=== PATIENT | female | born 1980 | race Two or more races ===

== ENCOUNTER 2020-02-12 22:41 | Emergency (ER) | payer BC, OTHER ==
[2020-02-12 22:46] VITALS: BP 151/98; PULSE 59; RESP 18; TEMP 98.8
--- NOTE | 2020-02-12 23:22 | ED ---
General Adult HPI - General Chief complaint: Recheck/Abnormal Lab/Rx Stated complaint: Female Time Seen by Provider: 02/12/20 22:53 Source: patient Mode of arrival: ambulatory Limitations: no limitations - History of Present Illness Initial comments: 39-year-old female presents to emergency Department with complaints of vaginal foreign body. Patient states inserted a tampon 7 days ago and has been unable to retrieve it. Patient states she noticed a foul-smelling vaginal odor today and became concerned. Denies vaginal discharge. States she has had intercourse with her with the retained tampon. Patient denies any recent rash, fever, chills, cough, shortness of breath, chest pain, abdominal pain, nausea, vomiting, diarrhea, constipation, back pain, numbness, tingling, dizziness, weakness, hematuria, dysuria, urinary urgency, urinary frequency, headache, visual changes, or any other complaints. - Related Data Allergies Allergy/AdvReac Type Severity Reaction Status Date / Time No Known Allergies Allergy Verified 02/12/20 22:47 Review of Systems ROS Statement: Those systems with pertinent positive or pertinent negative responses have been documented in the HPI. ROS Other: All systems not noted in ROS Statement are negative. Past Medical History Past Medical History: No Reported History Past Surgical History: No Surgical Hx Reported Smoking Status: Never smoker Past Alcohol Use History: None Reported Past Drug Use History: None Reported General Exam Limitations: no limitations (Well-developed, well-nourished female in no acute distress. Initial temperature 98.8F, pulse 59, respirations 18, blood pressure 151/98, pulse ox 99% on room air.) General appearance: alert, in no apparent distress Respiratory exam: Present: normal lung sounds bilaterally. Absent: respiratory distress, wheezes, rales, rhonchi, stridor Cardiovascular Exam: Present: regular rate, normal rhythm, normal heart sounds. Absent: systolic murmur, diastolic murmur, rubs, gallop, clicks GI/Abdominal exam: Present: soft, normal bowel sounds. Absent: distended, tenderness External exam: Present: normal external exam Speculum exam: Present: foreign body (Saturated tampon was removed using ring forceps). Absent: erythema, vaginal discharge Neurological exam: Present: alert, oriented X3, CN II-XII intact Psychiatric exam: Present: normal affect, normal mood Course Vital Signs 02/12/20 22:43 Temperature 98.8 F Pulse Rate 59 L Respiratory 18 Rate Blood Pressure 151/98 O2 Sat by Pulse 99 Oximetry Medical Decision Making - Medical Decision Making 39-year-old female presents to the emergency Department with complaints of vaginal foreign body. Patient states she forgot about a tampon she placed approximately 7 days ago. Reports becoming concerned when she noticed a foul- smelling vaginal odor this morning. Patient states she attempted to remove the retained tampon at home prior to arrival but was unsuccessful. Saturated tampon was easily removed with ring forceps during speculum exam. Instructed to follow-up with primary care provider for recheck as needed. Return parameters were discussed in detail. Patient verbalizes understanding and agrees with this plan. Disposition Clinical Impression: Vaginal foreign body Disposition: HOME SELF-CARE Condition: Good Instructions (If sedation given, give patient instructions): Vaginal Foreign Body (ED) Additional Instructions: Follow-up with your primary care provider for recheck in the next 1-2 days. Return to the emergency department with any new, worsening, or concerning symptoms. Is patient prescribed a controlled substance at d/c from ED?: No Referrals: None,Stated [Primary Care Provider] - 1-2 days Time of Disposition: 23:21
== END 2020-02-12 23:46 | disposition home or self-care (01) ==
LOC: EC 22:41
DX: T19.2XXA Foreign body in vulva and vagina, initial encounter (principal); X58.XXXA Exposure to other specified factors, initial encounter
CPT/HCPCS: 99283

== ENCOUNTER 2020-03-10 01:46 | Observation (INO) | payer OTHER ==
--- NOTE | 2020-03-10 02:34 | ED ---
General Adult HPI - General Chief complaint: Extremity Problem,Nontraumatic Stated complaint: High blood pressure, swollen feet Time Seen by Provider: 03/10/20 02:14 Source: patient Mode of arrival: wheelchair Limitations: no limitations - History of Present Illness Initial comments: This patient is a 39-year-old woman whose only known medical history of some -induced hypertension, presenting with a constellation of symptoms. We'll brought her to the emergency department mainly in his lower extremity swelling. She states that on probably March 05 she noticed that her bilateral feet and lower legs were swelling such it was becoming difficult to put her shoes on. She was seen in an urgent care 2 days ago and was given diuretics to use but states that since that time the swelling has only worsened. Prior to this she notes that her exercise tolerance that he changed. The patient states she is a regular bicyclist, but noticed that starting around January her exercise tolerance seem to be reduced. The patient denies chest pain. No dyspnea, diaphoresis, orthopnea, change in urination, bloody or tarry stools. Patient denies unilateral leg pain. She states there is a little bit of pain bilaterally associated with the swelling. -: days(s) Location: left, right, lower extremity Quality: dull Consistency: constant Improves with: none Worsens with: none - Related Data Home Medications Medication Instructions Recorded Confirmed Furosemide [Lasix] 40 mg PO DAILY 03/10/20 03/10/20 Allergies Allergy/AdvReac Type Severity Reaction Status Date / Time No Known Allergies Allergy Verified 03/10/20 07:40 Review of Systems ROS Statement: Those systems with pertinent positive or pertinent negative responses have been documented in the HPI. ROS Other: All systems not noted in ROS Statement are negative. Constitutional: Denies: fever, chills Respiratory: Denies: cough, dyspnea, hemoptysis Cardiovascular: Reports: dyspnea on exertion, edema. Denies: chest pain, palpitations, orthopnea, syncope Gastrointestinal: Denies: abdominal pain, nausea, vomiting, diarrhea, constipation Genitourinary: Denies: dysuria, frequency, hematuria Musculoskeletal: Reports: back pain (Chronic) Skin: Denies: rash Neurological: Denies: headache, weakness, numbness Hematological/Lymphatic: Denies: easy bleeding Past Medical History Past Medical History: No Reported History History of Any Multi-Drug Resistant Organisms: None Reported Past Surgical History: No Surgical Hx Reported Additional Past Surgical History / Comment(s): 5 vaginal deliveries Past Psychological History: No Psychological Hx Reported Smoking Status: Current every day smoker, Never smoker Past Alcohol Use History: None Reported Past Drug Use History: None Reported - Past Family History Mother Family Medical History: Cancer Additional Family Medical History / Comment(s): Breast CA. family Family Medical History: No Reported History General Exam Limitations: no limitations General appearance: alert, in no apparent distress Head exam: Present: atraumatic, normocephalic Eye exam: Present: normal appearance. Absent: scleral icterus, conjunctival injection ENT exam: Present: normal oropharynx Neck exam: Present: normal inspection Respiratory exam: Present: normal lung sounds bilaterally. Absent: respiratory distress, wheezes, rales, rhonchi, stridor, accessory muscle use, decreased breath sounds, prolonged expiratory Cardiovascular Exam: Present: regular rate, normal rhythm, normal heart sounds. Absent: systolic murmur, diastolic murmur, rubs, gallop GI/Abdominal exam: Present: soft. Absent: distended, tenderness, guarding, rebound, rigid, mass Extremities exam: Present: normal inspection, normal capillary refill, pedal edema. Absent: calf tenderness Neurological exam: Present: alert. Absent: motor sensory deficit Skin exam: Present: warm, dry, intact, normal color. Absent: rash Course Vital Signs 03/10/20 03/10/20 01:58 03:57 Temperature 97.9 F Pulse Rate 106 H 92 Respiratory 18 19 Rate Blood Pressure 142/95 130/97 O2 Sat by Pulse 100 98 Oximetry EKG Findings - EKG Comments: EKG Findings:: Possible old anterior infarct, possible old inferior infarct. - EKG Results: EKG: sinus rhythm (Rate 95 bpm) - Blocks, [place], Hypertrophy, ST Abn: AV and intraventricular conduction: right bundle branch block (fixed/intermittent, complete/incomplete) (Incomplete) Chamber hypertrophy or enlargement: right ventricular hypertrophy or enlargement (With repolarization abnormality) Repolarization changes or abnormalities: nonspecific abnormality, ST segment, and/or T wave Medical Decision Making - Medical Decision Making This patient is a 39-year-old woman presenting with bilateral lower extremity edema. On the exam she does manifest some evidence of right-sided heart failure and her ECG though not diagnostic is abnormal. Patient will be admitted for echocardiogram and cardiology consultation. - Lab Data Result diagrams: 03/10/20 02:22 03/10/20 02:22 Lab Results 03/10/20 03/10/20 03/10/20 Range/Units 02:22 02:22 02:22 WBC 9.9 (3.8-10.6) k/uL RBC 5.62 H (3.80-5.40) m/uL Hgb 15.8 (11.4-16.0) gm/dL Hct 50.0 H (34.0-46.0) % MCV 89.1 (80.0-100.0) fL MCH 28.1 (25.0-35.0) pg MCHC 31.6 (31.0-37.0) g/dL RDW 13.6 (11.5-15.5) % Plt Count 297 (150-450) k/uL MPV 8.7 Neutrophils % 58 % Lymphocytes % 32 % Monocytes % 4 % Eosinophils % 3 % Basophils % 1 % Neutrophils # 5.8 (1.3-7.7) k/uL Lymphocytes # 3.2 (1.0-4.8) k/uL Monocytes # 0.4 (0-1.0) k/uL Eosinophils # 0.3 (0-0.7) k/uL Basophils # 0.1 (0-0.2) k/uL D-Dimer 0.53 (<0.60) mg/L FEU Sodium (137-145) mmol/L Potassium (3.5-5.1) mmol/L Chloride (98-107) mmol/L Carbon Dioxide (22-30) mmol/L Anion Gap mmol/L BUN (7-17) mg/dL Creatinine (0.52-1.04) mg/dL Est GFR (CKD-EPI)AfAm (>60 ml/min/1.73 sqM) Est GFR (CKD-EPI)NonAf (>60 ml/min/1.73 sqM) Glucose (74-99) mg/dL Calcium (8.4-10.2) mg/dL Total Bilirubin (0.2-1.3) mg/dL AST (14-36) U/L ALT (4-34) U/L Alkaline Phosphatase (38-126) U/L Troponin I (0.000-0.034) ng/mL NT-Pro-B Natriuret Pep pg/mL Total Protein (6.3-8.2) g/dL Albumin (3.5-5.0) g/dL TSH (0.465-4.680) mIU/L Urine Color Yellow Urine Appearance Cloudy H (Clear) Urine pH 8.5 H (5.0-8.0) Ur Specific [place] 1.023 (1.001-1.035) Urine Protein 1+ H (Negative) Urine Glucose (UA) Negative (Negative) Urine Ketones Negative (Negative) Urine Blood Negative (Negative) Urine Nitrite Negative (Negative) Urine Bilirubin Negative (Negative) Urine Urobilinogen 4.0 (<2.0) mg/dL Ur Leukocyte Esterase Moderate H (Negative) Urine RBC 4 (0-5) /hpf Urine WBC 15 H (0-5) /hpf Ur Squamous Epith Cells 24 H (0-4) /hpf Urine Bacteria Rare H (None) /hpf Urine Mucus Rare H (None) /hpf 03/10/20 03/10/20 03/10/20 Range/Units 02:22 02:22 02:22 WBC (3.8-10.6) k/uL RBC (3.80-5.40) m/uL Hgb (11.4-16.0) gm/dL Hct (34.0-46.0) % MCV (80.0-100.0) fL MCH (25.0-35.0) pg MCHC (31.0-37.0) g/dL RDW (11.5-15.5) % Plt Count (150-450) k/uL MPV Neutrophils % % Lymphocytes % % Monocytes % % Eosinophils % % Basophils % % Neutrophils # (1.3-7.7) k/uL Lymphocytes # (1.0-4.8) k/uL Monocytes # (0-1.0) k/uL Eosinophils # (0-0.7) k/uL Basophils # (0-0.2) k/uL D-Dimer (<0.60) mg/L FEU Sodium 135 L (137-145) mmol/L Potassium 4.5 (3.5-5.1) mmol/L Chloride 105 (98-107) mmol/L Carbon Dioxide 25 (22-30) mmol/L Anion Gap 5 mmol/L BUN 13 (7-17) mg/dL Creatinine 0.90 (0.52-1.04) mg/dL Est GFR (CKD-EPI)AfAm >90 (>60 ml/min/1.73 sqM) Est GFR (CKD-EPI)NonAf 81 (>60 ml/min/1.73 sqM) Glucose 110 H (74-99) mg/dL Calcium 9.2 (8.4-10.2) mg/dL Total Bilirubin 0.8 (0.2-1.3) mg/dL AST 29 (14-36) U/L ALT 23 (4-34) U/L Alkaline Phosphatase 86 (38-126) U/L Troponin I 0.013 (0.000-0.034) ng/mL NT-Pro-B Natriuret Pep 1240 pg/mL Total Protein 7.0 (6.3-8.2) g/dL Albumin 4.0 (3.5-5.0) g/dL TSH (0.465-4.680) mIU/L Urine Color Urine Appearance (Clear) Urine pH (5.0-8.0) Ur Specific [place] (1.001-1.035) Urine Protein (Negative) Urine Glucose (UA) (Negative) Urine Ketones (Negative) Urine Blood (Negative) Urine Nitrite (Negative) Urine Bilirubin (Negative) Urine Urobilinogen (<2.0) mg/dL Ur Leukocyte Esterase (Negative) Urine RBC (0-5) /hpf Urine WBC (0-5) /hpf Ur Squamous Epith Cells (0-4) /hpf Urine Bacteria (None) /hpf Urine Mucus (None) /hpf 03/10/20 Range/Units 02:22 WBC (3.8-10.6) k/uL RBC (3.80-5.40) m/uL Hgb (11.4-16.0) gm/dL Hct (34.0-46.0) % MCV (80.0-100.0) fL MCH (25.0-35.0) pg MCHC (31.0-37.0) g/dL RDW (11.5-15.5) % Plt Count (150-450) k/uL MPV Neutrophils % % Lymphocytes % % Monocytes % % Eosinophils % % Basophils % % Neutrophils # (1.3-7.7) k/uL Lymphocytes # (1.0-4.8) k/uL Monocytes # (0-1.0) k/uL Eosinophils # (0-0.7) k/uL Basophils # (0-0.2) k/uL D-Dimer (<0.60) mg/L FEU Sodium (137-145) mmol/L Potassium (3.5-5.1) mmol/L Chloride (98-107) mmol/L Carbon Dioxide (22-30) mmol/L Anion Gap mmol/L BUN (7-17) mg/dL Creatinine (0.52-1.04) mg/dL Est GFR (CKD-EPI)AfAm (>60 ml/min/1.73 sqM) Est GFR (CKD-EPI)NonAf (>60 ml/min/1.73 sqM) Glucose (74-99) mg/dL Calcium (8.4-10.2) mg/dL Total Bilirubin (0.2-1.3) mg/dL AST (14-36) U/L ALT (4-34) U/L Alkaline Phosphatase (38-126) U/L Troponin I (0.000-0.034) ng/mL NT-Pro-B Natriuret Pep pg/mL Total Protein (6.3-8.2) g/dL Albumin (3.5-5.0) g/dL TSH 1.170 (0.465-4.680) mIU/L Urine Color Urine Appearance (Clear) Urine pH (5.0-8.0) Ur Specific [place] (1.001-1.035) Urine Protein (Negative) Urine Glucose (UA) (Negative) Urine Ketones (Negative) Urine Blood (Negative) Urine Nitrite (Negative) Urine Bilirubin (Negative) Urine Urobilinogen (<2.0) mg/dL Ur Leukocyte Esterase (Negative) Urine RBC (0-5) /hpf Urine WBC (0-5) /hpf Ur Squamous Epith Cells (0-4) /hpf Urine Bacteria (None) /hpf Urine Mucus (None) /hpf Disposition Clinical Impression: Hypertension, New onset of congestive heart failure Disposition: ADMITTED IP TO THIS [facility] Condition: Fair
[2020-03-10 02:35] LABS: Basophils # (A) 0.1 k/uL (0-0.2); Basophils % (A) 1 %; Eosinophils # (A) 0.3 k/uL (0-0.7); Eosinophils % (A) 3 %; HGB 15.8 gm/dL (11.4-16.0); Lymphocytes # (A) 3.2 k/uL (1.0-4.8); Lymphocytes % (A) 32 %; MCH 28.1 pg (25.0-35.0); MCHC 31.6 g/dL (31.0-37.0); MCV 89.1 fL (80.0-100.0); Mean Platelet Volume 8.7; Monocytes # (A) 0.4 k/uL (0-1.0); Monocytes % (A) 4 %; Neutrophils # (A) 5.8 k/uL (1.3-7.7); Neutrophils % (A) 58 %; Platelet Count 297 k/uL (150-450); RBC 5.62 m/uL (3.80-5.40); RDW 13.6 % (11.5-15.5); WBC 9.9 k/uL (3.8-10.6)
[2020-03-10 02:47] LABS: ALT 23 U/L (4-34); African American GFR (CKD) >90 (>60 ml/min/1.73 sqM); Anion Gap 5 mmol/L; Blood Urea Nitrogen 13 mg/dL (7-17); Calcium 9.2 mg/dL (8.4-10.2); Carbon Dioxide 25 mmol/L (22-30); Chloride 105 mmol/L (98-107); Glucose 110 mg/dL (74-99); Non-African American GFR(CKD) 81 (>60 ml/min/1.73 sqM); Sodium 135 mmol/L (137-145); Total Bilirubin 0.8 mg/dL (0.2-1.3)
[2020-03-10 02:49] LABS: AST 29 U/L (14-36); Potassium 4.5 mmol/L (3.5-5.1)
[2020-03-10 02:50] LABS: Alkaline Phosphatase 86 U/L (38-126)
--- NOTE | 2020-03-10 02:56 | XR ---
EXAM: XR Chest, 2 Views CLINICAL HISTORY: ITS.REASON XR Reason: edema TECHNIQUE: Frontal and lateral views of the chest. COMPARISON: No relevant prior studies available. FINDINGS: Lungs: Unremarkable. No consolidation. Pleural space: Unremarkable. No pneumothorax. Heart: Unremarkable. No cardiomegaly. Mediastinum: Unremarkable. Bones/joints: Mild degenerative changes in the lower thoracic spine. IMPRESSION: No acute findings in the chest.
[2020-03-10] MEDS ORDERED: lisinopriL 5 MG TAB PO STA (03:39)
[2020-03-10 03:48] LABS: Appearance,Urine Cloudy (Clear); Bacteria,Urine Rare /hpf; Bilirubin,Urine Negative (Negative); Blood,Urine Negative (Negative); Color,Urine Yellow; Glucose,Urine (UA) Negative (Negative); Ketones,Urine Negative (Negative); Leukocyte Esterase,Urine Moderate (Negative); Mucus,Urine Rare /hpf; Nitrite,Urine Negative (Negative); PH, Urine 8.5 (5.0-8.0); Protein,Urine 1+ (Negative); RBC,Urine 4 /hpf (0-5); Specific Gravity,Urine 1.023 (1.001-1.035); Squamous Epithelial Cell,Urine 24 /hpf (0-4); WBC,Urine 15 /hpf (0-5)
[2020-03-10] MEDS ORDERED: MAGNESIUM CITRATE 296 ML BOTTLE PO ONE (03:57)
[2020-03-10] MEDS ORDERED: FUROSEMIDE 10 MG/ML 4 ML VIAL IV SCH (04:00)
[2020-03-10 05:19] VITALS: RESP 18
[2020-03-10] MEDS ORDERED: IBUPROFEN 400 MG TAB PO PRN (05:24)
--- NOTE | 2020-03-10 06:01 | P.HPIM ---
History of Present Illness H&P Date: 03/10/20 Chief Complaint: bilateral leg swelling 39 year old female with history of induced hypertension patient comes in due to worsening bilateral feet and leg swelling of 5 days duration , started before tj esa, for which she went to urgent care and given diuretics with no benefit. over past two days, her leg swelling got worse to a point where it became associated with pain over bilateral feet, and shoes not fitting anymore. she grew more concerned, and was googling about the problem , for which she decided to come for evaluation. she denies any similar history in the past. she does report decrease exercise tolerance over the past 2 months, she used to cycle on regular basis, but had to stop due to SOB with exertion. she denies any coughing , wheezing, or orthopnea, or PND. she denies any recent illness, travel or hospitalization in the ED, her EKG was showing T wave inversions over lateral leads, with incomplete RBBB blood work over all unremarkable except for slightly elevated probnp CXR unremarkable Review of Systems Pertinent positives as noted in HPI. All other systems were reviewed and are negative Past Medical History Past Medical History: No Reported History History of Any Multi-Drug Resistant Organisms: None Reported Past Surgical History: No Surgical Hx Reported Additional Past Surgical History / Comment(s): 5 vaginal deliveries Past Psychological History: No Psychological Hx Reported Smoking Status: Current every day smoker, Never smoker Past Alcohol Use History: None Reported Past Drug Use History: None Reported - Past Family History family Family Medical History: No Reported History Medications and Allergies Allergies Allergy/AdvReac Type Severity Reaction Status Date / Time No Known Allergies Allergy Verified 03/10/20 02:02 Physical Exam Vitals: Vital Signs Temp Pulse Resp BP Pulse Ox 03/10/20 03:57 92 19 130/97 98 03/10/20 01:58 97.9 F 106 H 18 142/95 100 Intake and Output 03/09/20 03/09/20 03/10/20 14:59 22:59 06:59 Other: Weight 66.769 kg Constitutional: No acute distress, conversant, pleasant Eyes: Anicteric sclerae, moist conjunctiva, Pupils equal round reactive to light ENMT: NC/AT Oropharynx clear, no erythema, or exudates Neck: Supple, FROM, no masses, or JVD No carotid bruits No thyromegaly Lungs: Clear to auscultation Clear to percussion Normal respiratory effort, no accessory muscle use Cardiovascular: Heart regular in rate and rhythm, No murmurs, gallops, or rubs No peripheral edema Abdominal: Soft Nontender, no guarding, rebound or rigidity Abdomen moving with respiration Normoactive bowel sounds No hepatomegaly, No splenomegaly No palpable mass No abdominal wall hernia noted Skin: there papular erythematus rash over inner side of bilateral lower third of her legs, non blanching ,otherwise Normal temperature, tone, texture, turgor No induration No subcutaneous nodules No ulcers Extremities: No digital cyanosis No clubbing Pedal pulses intact and symmetrical Radial pulses intact and symmetrical tenderness to palpation of bilateral feet and legs Psychiatric: Alert and oriented to person, place and time Appropriate affect fair judgement Neuro Muscles Strength 5/5 in all 4 extremities Sensation to light touch grossly present throughout Cranial nerves II-XII grossly intact No focal sensory deficits Lymphatics: no palpable cervical or supraclavicular , or inguinal lymph nodes Results CBC & Chem 7: 03/10/20 02:22 03/10/20 02:22 Labs: Abnormal Lab Results - Last 24 Hours (Table) 03/10/20 03/10/20 03/10/20 Range/Units 02:22 02:22 02:22 RBC 5.62 H (3.80-5.40) m/uL Hct 50.0 H (34.0-46.0) % Sodium 135 L (137-145) mmol/L Glucose 110 H (74-99) mg/dL Urine Appearance Cloudy H (Clear) Urine pH 8.5 H (5.0-8.0) Urine Protein 1+ H (Negative) Ur Leukocyte Esterase Moderate H (Negative) Urine WBC 15 H (0-5) /hpf Ur Squamous Epith Cells 24 H (0-4) /hpf Urine Bacteria Rare H (None) /hpf Urine Mucus Rare H (None) /hpf Assessment and Plan Assessment: bilateral leg swelling decrease exercise tolerance check echocardiogram monitor for any development of induration over the legs which could suggest signs of cellulitis check venous doppler US of legs, d dimer is negative resume lasix elevate legs CODE STATUS:full code DVT prophylaxis: heparin sc tid Discussed with: Patient, ER, RN Anticipated length of stay < than [address]: home A total of 65 minutes was spent on the care of this complex patient more than 50% of the time was spent in counseling and care coordination.
[2020-03-10] MEDS ORDERED: ACETAMINOPHEN TAB 325 MG TAB PO PRN (06:02)
[2020-03-10] MEDS ORDERED: HEPARIN SODIUM,PORCINE 5,000 UNIT/ML 1 ML VIAL SQ SCH (08:00)
--- NOTE | 2020-03-10 08:20 | US ---
EXAMINATION TYPE: US venous doppler duplex LE DATE OF EXAM: 03/10/2020 7:32 AM COMPARISON: NONE CLINICAL HISTORY: swelling , rule out DVT. Bilateral leg pain and swelling SIDE PERFORMED: Bilateral TECHNIQUE: The lower extremity deep venous system is examined utilizing real time linear array sonog shyam with graded compression, doppler sonography and color-flow sonography. VESSELS IMAGED: Common Femoral Vein Deep Femoral Vein Greater Saphenous Vein * Femoral Vein Popliteal Vein Small Saphenous Vein * Proximal Calf Veins (* superficial vessels) Right Leg: Appears negative for DVT Left Leg: Appears negative for DVT Left popliteal fossa: 3.5 x 1.1 x 1.8cm complex cystic area medial to vessels Grayscale, color doppler, spectral doppler imaging performed of the deep veins of the bilateral lower extremities. There is normal flow, compressibility, vascular waveforms. IMPRESSION: No ultrasound evidence for acute DVT in either lower extremity. Towards end of study a s mall left-sided debris-filled popliteal cyst is suspected.
[2020-03-10 11:38] VITALS: BP 120/77; PULSE 91; TEMP 97.6
[2020-03-10 12:55] VITALS: BMI 25.0
--- NOTE | 2020-03-10 13:34 | ECHOF ---
Referral Reason:Heart Failure MEASUREMENTS -------- HEIGHT: 160.0 cm WEIGHT: 66.7 kg BP: 139/99 IVSd: 1.5 cm (0.6 - 1.1) LVIDd: 3.0 cm (3.9 - 5.3) LVPWd: 1.3 cm (0.6 - 1.1) IVSs: 1.5 cm LVIDs: 2.3 cm LVPWs: 1.7 cm LA Diam: 2.6 cm (2.7 - 3.8) RVIDd: 3.9 cm (< 3.3) LAESV Index (A-L): 19.51 ml/m Ao Diam: 2.9 cm (2.0 - 3.7) AV Cusp: 1.9 cm (1.5 - 2.6) EPSS: 0.3 cm MV E Mars: 0.37 m/s MV DecT: 402 ms MV A Mars: 0.53 m/s MV E/A Ratio: 0.69 RAP: 5.00 mmHg RVSP: 58.53 mmHg MV EF SLOPE: 102.80 mm/s (70 - 150) MV EXCURSION: 14.95 mm (> 18.000) TAPSE: 10.41 mm FINDINGS -------- Sinus rhythm. This was a technically good study. The left ventricular size is normal. There is moderate concentric left ventricular hypertrophy. O verall left ventricular systolic function is normal with, an EF between 60 - 65 %. The right ventricle is moderately enlarged. The right ventricular systolic function is moderately i mpaired. The right ventricular septal wall is flattened in diastole and systole which is consistent with right ventricular volume and pressure overload. Normal LA size by volume 22+/-6 ml/m2. The right atrium is normal in size. Interatrial and interventricular septum intact. Aortic valve is trileaflet and is mildly thickened. The mitral valve is normal. [id number] tricuspid regurgitation present. There is moderate to severe pulmonary hypertensio n. The right ventricular systolic pressure, as measured by Doppler, is 58.53mmHg. Trace/mild (physiologic) pulmonic regurgitation. The aortic root size is normal. Normal inferior vena cava with normal inspiratory collapse consistent with estimated right atrial pre ssure of 5 mmHg. There is no pericardial effusion. CONCLUSIONS -------- 1. The left ventricular size is normal. 2. There is moderate concentric left ventricular hypertrophy. 3. Overall left ventricular systolic function is normal with, an EF between 60 - 65 %. 4. The right ventricle is moderately enlarged. 5. The right ventricular systolic function is moderately impaired. 6. The right ventricular septal wall is flattened in diastole and systole which is consistent with r ight ventricular volume and pressure overload. 7. Aortic valve is trileaflet and is mildly thickened. 8. [id number] tricuspid regurgitation present. 9. There is moderate to severe pulmonary hypertension. 10. The right ventricular systolic pressure, as measured by Doppler, is 58.53mmHg. 11. Trace/mild (physiologic) pulmonic regurgitation. 12. There is no pericardial effusion. TRAFFIC INCIDENT MANAGEMENT MANAGER: Milka Allison RDCS
--- NOTE | 2020-03-10 14:05 | P.CRDCN ---
History of Present Illness Consult date: 03/10/20 Chief complaint: Lower extremities edema History of present illness: This is a very pleasant 39-year-old female patient was no significant past m edical history who presented to the emergency department complaining of bilateral lower extremities edema. The symptom started about 3 days ago just before [place] when she noticed edema and swelling in the legs. She initially presented in to an urgent care where she was placed on diuretics without any improvement and because of that she presented to the emergency department. She describes also mild increasing in the shortness of breath with exertion but no symptoms of chest pain or chest discomfort and no dizziness or lightheadedness. Beside that she also has noticed that she does have lower energy and her stamina is not as good as before. The patient normally is exercising on a regular basis and she right a bike regularly. Clearly her stamina and energy is not as good as before. The BNP came in to be slightly elevated. The chest x-ray did not show any acute abnormalities. The patient was placed on Lasix IV with significant improvement in her symptoms. An echocardiogram was performed and revealed normal left ventricular systolic function with evidence off pulmonary hypertension. The patient does not have any sleep apnea. No history of thyroid disorder. She is asking if she can go home. The patient would like to go home because she does have kids at home. Past Medical History Past Medical History: No Reported History History of Any Multi-Drug Resistant Organisms: None Reported Past Surgical History: No Surgical Hx Reported Additional Past Surgical History / Comment(s): 5 vaginal deliveries Past Anesthesia/Blood Transfusion Reactions: No Reported Reaction Past Psychological History: No Psychological Hx Reported Smoking Status: Current every day smoker, Never smoker Past Alcohol Use History: None Reported Past Drug Use History: None Reported - Past Family History Mother Family Medical History: Cancer Additional Family Medical History / Comment(s): Breast CA. family Family Medical History: No Reported History Medications and Allergies Home Medications Medication Instructions Recorded Confirmed Type Furosemide [Lasix] 40 mg PO DAILY 03/10/20 03/10/20 History Allergies Allergy/AdvReac Type Severity Reaction Status Date / Time No Known Allergies Allergy Verified 03/10/20 07:40 Physical Exam Vitals: Vital Signs Temp Pulse Pulse Resp BP BP Pulse Ox 03/10/20 11:37 97.6 F 91 18 120/77 97 03/10/20 08:37 98.2 F 92 18 122/88 98 03/10/20 08:00 92 18 03/10/20 05:00 98.6 F 95 18 139/99 99 03/10/20 03:57 92 19 130/97 98 03/10/20 01:58 97.9 F 106 H 18 142/95 100 Intake and Output 03/09/20 03/10/20 03/10/20 22:59 06:59 14:59 Other: # Voids 1 Weight 64 kg 64 kg - Constitutional General appearance: no acute distress - Respiratory Respiratory: bilateral: CTA - Cardiovascular Rhythm: regular Heart sounds: normal: S1, S2 Abnormal Heart Sounds: systolic murmur Results 03/10/20 02:22 03/10/20 02:22 Cardiac Enzymes 03/10/20 03/10/20 Range/Units 02:22 02:22 AST 29 (14-36) U/L Troponin I 0.013 (0.000-0.034) ng/mL CBC 03/10/20 Range/Units 02:22 WBC 9.9 (3.8-10.6) k/uL RBC 5.62 H (3.80-5.40) m/uL Hgb 15.8 (11.4-16.0) gm/dL Hct 50.0 H (34.0-46.0) % Plt Count 297 (150-450) k/uL Comprehensive Metabolic Panel 03/10/20 Range/Units 02:22 Sodium 135 L (137-145) mmol/L Potassium 4.5 (3.5-5.1) mmol/L Chloride 105 (98-107) mmol/L Carbon Dioxide 25 (22-30) mmol/L BUN 13 (7-17) mg/dL Creatinine 0.90 (0.52-1.04) mg/dL Glucose 110 H (74-99) mg/dL Calcium 9.2 (8.4-10.2) mg/dL AST 29 (14-36) U/L ALT 23 (4-34) U/L Alkaline Phosphatase 86 (38-126) U/L Total Protein 7.0 (6.3-8.2) g/dL Albumin 4.0 (3.5-5.0) g/dL Current Medications Generic Name Dose Route Start Last Admin Trade Name Freq PRN Reason Stop Dose Admin Acetaminophen 650 mg 03/10/20 06:02 03/10/20 08:39 Acetaminophen Tab 325 Mg Tab PO 650 mg Q6HR PRN Administration Fever and/ or Pain Furosemide 40 mg 03/10/20 04:00 03/10/20 03:53 Furosemide 10 Mg/Ml 4 Ml Vial IV 40 mg Q12H MICHELLE Administration Heparin Sodium (Porcine) 5,000 unit 03/10/20 08:00 03/10/20 08:40 Heparin Sodium,Porcine 5,000 Unit/Ml 1 Ml Vial SQ 5,000 unit Q8HR MICHELLE Administration Ibuprofen 400 mg 03/10/20 05:24 03/10/20 05:42 Ibuprofen 400 Mg Tab PO 400 mg Q6HR PRN Administration Pain Sodium Chloride 10 ml 03/10/20 09:00 03/10/20 08:40 Sodium Chloride 0.9% Flush 10 Ml Syringe IV 10 ml BID MICHELLE Administration Intake and Output 03/09/20 03/10/20 03/10/20 22:59 06:59 14:59 Other: # Voids 1 Weight 64 kg 64 kg Patient Weight 03/11/20 06:59 Weight 64 kg 03/10/20 02:22 03/10/20 02:22 Assessment and Plan Assessment: Assessment #1 bilateral lower extremities edema #2 decrease exercise tolerance #3 pulmonary hypertension Plan #1 DVT was ruled out. The patient underwent venous to Study came in to be unremarkable #2 the patient would like to go home #3 she can go on by mouth the Arthrex #4 atrial septal defect to be ruled and rule out any [id number] shunt #5 sleep apnea need to be ruled out as well #6 follow-up with the patient
--- NOTE | 2020-03-10 14:46 | P.DS ---
Providers Date of admission: 03/10/20 03:46 Expected date of discharge: 03/10/20 Attending physician: Braydon Garza MD Consults: 03/10/20 03:46 Consult Physician Routine Consulting Provider: Mikal Davey Consult Reason/Comments: New diagnosis congestive heart failure Do you want consulting provider notified?: Yes Primary care physician: Stated None Hospital Course: The patient is a 39-year-old female with no known PMH who had presented to the emergency room with complaints of bilateral lower extremity edema ongoing for about a week. Patient had reported been seen in an urgent care clinic prior to presentation, where she was given diuretics with little improvement. The patient had noted that her swelling had worsened with accompanied bilateral leg pain. The patient also reported decreased exercise tolerance over the past few weeks. The patient had undergone an extensive evaluation in the emergency room with a proBNP 1240 with a troponin 0.013. She was admitted to the medicine floor and an echocardiogram revealed moderate LVH with LVEF of 60-65% with right ventricular enlargement with moderate to severe pulmonary hypertension with a PASP of 58.53 mmHg. Lower extremity venous duplex were negative with the d- dimer 0.53. Cardiology was consulted and noted that the patient will need further workup including studies to rule out [id number] shunts, ASD, or sleep apnea. Recommended the patient be discharged home on oral Lasix with an outpatient cardiology clinic follow-up. Patient was seen and examined at the bedside on the day of discharge. She noted improvement in her lower extremity swelling and pain. She denied any additional complaints. She denied chest discomfort, dyspnea at rest. Nausea, vomiting, fever, chills, cough. Patient verbalized understanding of the importance of outpatient follow-up with cardiology. She is ready and agreeable for discharge to home. Physical Examination General: Non-toxic, in no acute distress, appears stated age, normal weight HEENT: NC/AT, anicteric sclerae, moist conjunctiva, no lid-lag, PERRLA Cardiovascular: S1/S2 wnl, no murmurs, rubs, or gallops Lungs: Clear to auscultation, normal respiratory effort, no accessory muscle use Abdominal: Soft, non-tender, non-distended, no guarding, rebound, or rigidity Skin: Warm, dry Extremities: 1+ bilateral lower extremity pitting edema, no contractures Psychiatric: Alert and oriented to person, place and time, appropriate affect Neuro: CN II-XII grossly intact, Strength 5/5 in all 4 extremities, Speech intact, Sensation to light touch grossly intact throughout Discharge diagnosis: Pulmonary hypertension, bilateral lower extremity edema A total of 35 minutes of time were spent preparing this complex discharge summary. Patient Condition at Discharge: Stable Plan - Discharge Summary Discharge Rx Participant: No New Discharge Prescriptions: Changed Furosemide [Lasix] 40 mg PO BID #30 tab Discharge Medication List Furosemide [Lasix] 40 mg PO BID #30 tab 03/10/20 [Rx] Follow up Appointment(s)/Referral(s): Mikal Davey MD [STAFF PHYSICIAN] - 1 Week (Office will call with follow up appointment) None,Stated [Primary Care Provider] - 1-2 days Patient Instructions/Handouts: Heart Failure (DC), Pulmonary Arterial Hypertension (DC) Discharge Disposition: HOME SELF-CARE
== END 2020-03-10 15:31 | disposition home or self-care (01) ==
LOC: EC 01:46 → 3SCARD 03:46
PROVIDERS: ADMIT Internal Medicine; ATTEND Internal Medicine
DX: I27.20 Pulmonary hypertension, unspecified (principal); R60.0 Localized edema; I45.19 Other right bundle-branch block; R94.31 Abnormal electrocardiogram [ECG] [EKG]; R79.89 Other specified abnormal findings of blood chemistry; F17.200 Nicotine dependence, unspecified, uncomplicated; Z87.59 Personal history of other complications of pregnancy, childbirth and the puerperium; Z79.899 Other long term (current) drug therapy; Z80.3 Family history of malignant neoplasm of breast
CPT/HCPCS: 96372; 96374; 99285; 36415; 93005; 93306; 85379; 83880; 80053; 84443; 84484; 85025; 81001; 86769; 71046; 93970; G0378; J1644; J1940

== ENCOUNTER 2020-06-04 08:11 | Emergency (ER) | payer OTHER ==
[2020-06-04 08:26] VITALS: RESP 18
--- NOTE | 2020-06-04 08:46 | ED ---
General Adult HPI - General Chief complaint: Upper Respiratory Infection Stated complaint: weak/fever/sob/cough Time Seen by Provider: 06/04/20 08:29 Source: patient, RN notes reviewed Mode of arrival: ambulatory Limitations: no limitations - History of Present Illness Initial comments: 39-year-old female presents emergency Department chief complaint of cough congestion fever chills shortness of breath. Patient she's had multiple sick contacts. Patient states that she does state with simple for high blood pressure. Patient is not taking her medications. She states she feels short of breath though though pulse ox is 100%. states that she's had some mild GI symptoms. No leg pain or leg swelling. Patient also believes that she has a ta mpon retained for over a week but she is unsure. - Related Data Previous Rx's Medication Instructions Recorded Furosemide [Lasix] 40 mg PO BID #30 tab 03/10/20 metroNIDAZOLE [Flagyl] 500 mg PO TID #21 tab 06/04/20 Allergies Allergy/AdvReac Type Severity Reaction Status Date / Time No Known Allergies Allergy Verified 06/04/20 08:26 Review of Systems ROS Statement: Those systems with pertinent positive or pertinent negative responses have been documented in the HPI. ROS Other: All systems not noted in ROS Statement are negative. Past Medical History Past Medical History: No Reported History History of Any Multi-Drug Resistant Organisms: None Reported Past Surgical History: No Surgical Hx Reported Additional Past Surgical History / Comment(s): 5 vaginal deliveries Past Anesthesia/Blood Transfusion Reactions: No Reported Reaction Past Psychological History: No Psychological Hx Reported Smoking Status: Current every day smoker Past Alcohol Use History: None Reported Past Drug Use History: None Reported - Past Family History Mother Family Medical History: Cancer Additional Family Medical History / Comment(s): Breast CA. family Family Medical History: No Reported History General Exam Limitations: no limitations General appearance: alert, in no apparent distress Head exam: Present: atraumatic, normocephalic, normal inspection Eye exam: Present: normal appearance, PERRL, EOMI. Absent: scleral icterus, conjunctival injection, periorbital swelling ENT exam: Present: normal exam, normal oropharynx, mucous membranes moist Neck exam: Present: normal inspection, full ROM. Absent: tenderness, meningismus, lymphadenopathy Respiratory exam: Present: normal lung sounds bilaterally. Absent: respiratory distress, wheezes, rales, rhonchi, stridor Cardiovascular Exam: Present: regular rate, normal rhythm, normal heart sounds. Absent: systolic murmur, diastolic murmur, rubs, gallop, clicks GI/Abdominal exam: Present: soft, normal bowel sounds. Absent: distended, tenderness, guarding, rebound, rigid External exam: Present: normal external exam Speculum exam: Present: vaginal discharge, other (No foreign body noted exam performed with RN.) Back exam: Absent: CVA tenderness (R), CVA tenderness (L) Neurological exam: Present: alert Skin exam: Present: warm, dry, intact, normal color. Absent: rash Course Vital Signs 06/04/20 08:21 Temperature 98.2 F Pulse Rate 89 Respiratory 18 Rate Blood Pressure 100/71 O2 Sat by Pulse 100 Oximetry Medical Decision Making - Medical Decision Making 39-year-old female presented for "cold like symptoms patient's present: X-ray shows a mildly recommends outpatient CT patient reported that she's had multiple testing with the [facility] and will follow-up with the [facility]. Patient been no recent foreign body patient has evidence of actual vaginosis patient we discharged on Flagyl return parameters discussed. - Lab Data Lab Results 06/04/20 Range/Units 08:45 Coronavirus (PCR) Detected A (Not Detectd) Disposition Clinical Impression: COVID-19, Bacterial vaginosis Disposition: HOME SELF-CARE Condition: Stable Instructions (If sedation given, give patient instructions): Coronavirus Disease 2019 (COVID-19) Additional Instructions: Please return to the Emergency Department if symptoms worsen or any other concerns. Prescriptions: metroNIDAZOLE [Flagyl] 500 mg PO TID #21 tab Is patient prescribed a controlled substance at d/c from ED?: No Referrals: None,Stated [Primary Care Provider] - 1-2 days Time of Disposition: 10:06
--- NOTE | 2020-06-04 09:08 | XR ---
EXAMINATION TYPE: XR chest 2V DATE OF EXAM: 06/04/2020 COMPARISON: 03/10/2020 TECHNIQUE: PA and lateral views submitted. HISTORY: Cough FINDINGS: The lungs are clear and there is no pneumothorax, pleural effusion, or focal pneumonia. No overt fa ilure. Biapical pleural thickening. Sclerotic density involving the left hypertrophic change of the s pine mild prominence of the left hilum. IMPRESSION: 1. No acute process. Mild prominence of the left. Recommend CT scan chest. This could be vascular rel ated to ectasia, however, recommend follow-up CT scan chest.
[2020-06-04 10:22] VITALS: BP 106/75; PULSE 83; TEMP 98.9
== END 2020-06-04 10:20 | disposition home or self-care (01) ==
LOC: EC 08:11
DX: U07.1 COVID-19 (principal); N76.0 Acute vaginitis; B96.89 Other specified bacterial agents as the cause of diseases classified elsewhere; F17.200 Nicotine dependence, unspecified, uncomplicated
CPT/HCPCS: 71046; 87635; 99283

== ENCOUNTER 2020-12-27 09:05 | Observation (INO) | payer OTHER ==
--- NOTE | 2020-12-27 09:58 | ED ---
SOB HPI - General Chief Complaint: Shortness of Breath Stated Complaint: chest congestion, SOB Time Seen by Provider: 12/27/20 09:28 Source: patient, RN notes reviewed Mode of arrival: ambulatory Limitations: no limitations - History of Present Illness Initial Comments: This is a 40-year-old female history of CHF also a history of cold and 19 in May of this year who presents with complaints of cough with yellow phlegm shortness of breath she has had some sweats and felt hot congestion exertional dyspnea no overt chest pain or abdominal pain. She contacted her doctor who advised her to coming get evaluated. She also has increased lower extremity edema some lower extremity pain. MD Complaint: shortness of breath, cough - Related Data Home Medications Medication Instructions Recorded Confirmed lisinopriL [Zestril] 5 mg PO DAILY 06/04/20 12/27/20 Cyclobenzaprine [Flexeril] 5 mg PO Q8H PRN 12/27/20 12/27/20 Furosemide [Lasix] 40 mg PO HS 12/27/20 12/27/20 Furosemide [Lasix] 80 mg PO DAILY 12/27/20 12/27/20 Ibuprofen [Motrin] 800 mg PO Q8H PRN 12/27/20 12/27/20 Sildenafil [Revatio] 20 mg PO DAILY 12/27/20 12/27/20 Tyvaso Starter Kit 1.74mg/2.9 1 vial INHALATION RT-QID 12/27/20 12/27/20 Allergies Allergy/AdvReac Type Severity Reaction Status Date / Time No Known Allergies Allergy Verified 12/27/20 13:02 Review of Systems ROS Statement: Those systems with pertinent positive or pertinent negative responses have been documented in the HPI. ROS Other: All systems not noted in ROS Statement are negative. Past Medical History Past Medical History: Heart Failure Additional Past Medical History / Comment(s): small airway disease. History of Any Multi-Drug Resistant Organisms: None Reported Past Surgical History: No Surgical Hx Reported Additional Past Surgical History / Comment(s): 5 vaginal deliveries Past Anesthesia/Blood Transfusion Reactions: No Reported Reaction Past Psychological History: No Psychological Hx Reported Smoking Status: Current every day smoker Past Alcohol Use History: None Reported Past Drug Use History: None Reported - Past Family History Mother Family Medical History: Cancer Additional Family Medical History / Comment(s): Breast CA. family Family Medical History: No Reported History General Exam - General Exam Comments Initial Comments: This is a well-developed well-nourished awake alert oriented 3 female Limitations: no limitations General appearance: alert, anxious Head exam: Present: atraumatic, normocephalic, normal inspection Eye exam: Present: normal appearance, PERRL, EOMI. Absent: scleral icterus, conjunctival injection, periorbital swelling ENT exam: Present: normal exam, mucous membranes moist Neck exam: Present: normal inspection. Absent: tenderness, meningismus, lymphadenopathy Respiratory exam: Present: normal lung sounds bilaterally. Absent: respiratory distress, wheezes, rales, rhonchi, stridor Cardiovascular Exam: Present: regular rate, normal rhythm, normal heart sounds. Absent: systolic murmur, diastolic murmur, rubs, gallop, clicks GI/Abdominal exam: Present: soft, normal bowel sounds. Absent: distended, tenderness, guarding, rebound, rigid Extremities exam: Present: normal inspection, full ROM, normal capillary refill, pedal edema (Bilateral pedal edema with some anterior discomfort palpation no overt Tenderness however). Absent: tenderness, joint swelling, calf tenderness Back exam: Present: normal inspection Neurological exam: Present: alert, oriented X3, CN II-XII intact Psychiatric exam: Present: normal affect, normal mood Skin exam: Present: warm, dry, intact, normal color. Absent: rash Course Vital Signs 12/27/20 12/27/20 12/27/20 09:16 10:21 11:04 Temperature 97 F L Pulse Rate 92 78 89 Respiratory 18 18 20 Rate Blood Pressure 163/124 154/104 183/130 O2 Sat by Pulse 100 100 98 Oximetry 12/27/20 12/27/20 12/27/20 12:53 13:31 14:01 Temperature Pulse Rate 93 98 78 Respiratory 18 18 18 Rate Blood Pressure 166/129 161/115 144/103 O2 Sat by Pulse 100 99 Oximetry Medical Decision Making - Medical Decision Making I did discuss findings with patient and also with Dr. Cook patient be admitted for inpatient evaluation treatment of peripheral edema elevated BNP hypertension. She has been noncompliant with her medication admittedly. - Lab Data Result diagrams: 12/27/20 10:15 12/27/20 10:15 Lab Results 10/16/21 10/16/21 10/16/21 Range/Units 10:15 10:15 10:15 WBC 9.6 (3.8-10.6) k/uL RBC 4.95 (3.80-5.40) m/uL Hgb 15.1 (11.4-16.0) gm/dL Hct 46.7 H (34.0-46.0) % MCV 94.3 (80.0-100.0) fL MCH 30.5 (25.0-35.0) pg MCHC 32.4 (31.0-37.0) g/dL RDW 14.4 (11.5-15.5) % Plt Count 199 (150-450) k/uL MPV 8.9 Neutrophils % 58 % Lymphocytes % 31 % Monocytes % 5 % Eosinophils % 3 % Basophils % 1 % Neutrophils # 5.6 (1.3-7.7) k/uL Lymphocytes # 3.0 (1.0-4.8) k/uL Monocytes # 0.5 (0-1.0) k/uL Eosinophils # 0.3 (0-0.7) k/uL Basophils # 0.1 (0-0.2) k/uL PT 10.9 (9.0-12.0) sec INR 1.0 (<1.2) APTT 24.7 (22.0-30.0) sec D-Dimer 0.60 H (<0.60) mg/L FEU Sodium 136 L (137-145) mmol/L Potassium 4.0 (3.5-5.1) mmol/L Chloride 104 (98-107) mmol/L Carbon Dioxide 22 (22-30) mmol/L Anion Gap 10 mmol/L BUN 15 (7-17) mg/dL Creatinine 0.76 (0.52-1.04) mg/dL Est GFR (CKD-EPI)AfAm >90 (>60 ml/min/1.73 sqM) Est GFR (CKD-EPI)NonAf >90 (>60 ml/min/1.73 sqM) Glucose 134 H (74-99) mg/dL Plasma Lactic Acid Yazan (0.7-2.0) mmol/L Calcium 9.6 (8.4-10.2) mg/dL Magnesium 1.9 (1.6-2.3) mg/dL Total Bilirubin 0.8 (0.2-1.3) mg/dL AST 28 (14-36) U/L ALT 19 (4-34) U/L Alkaline Phosphatase 112 (38-126) U/L Troponin I (0.000-0.034) ng/mL NT-Pro-B Natriuret Pep pg/mL Total Protein 7.3 (6.3-8.2) g/dL Albumin 4.1 (3.5-5.0) g/dL Influenza Type A (PCR) (Not Detectd) Influenza Type B (PCR) (Not Detectd) RSV (PCR) (Not Detectd) SARS-CoV-2 (PCR) (Not Detectd) 12/27/20 12/27/20 12/27/20 Range/Units 10:15 10:15 10:15 WBC (3.8-10.6) k/uL RBC (3.80-5.40) m/uL Hgb (11.4-16.0) gm/dL Hct (34.0-46.0) % MCV (80.0-100.0) fL MCH (25.0-35.0) pg MCHC (31.0-37.0) g/dL RDW (11.5-15.5) % Plt Count (150-450) k/uL MPV Neutrophils % % Lymphocytes % % Monocytes % % Eosinophils % % Basophils % % Neutrophils # (1.3-7.7) k/uL Lymphocytes # (1.0-4.8) k/uL Monocytes # (0-1.0) k/uL Eosinophils # (0-0.7) k/uL Basophils # (0-0.2) k/uL PT (9.0-12.0) sec INR (<1.2) APTT (22.0-30.0) sec D-Dimer (<0.60) mg/L FEU Sodium (137-145) mmol/L Potassium (3.5-5.1) mmol/L Chloride (98-107) mmol/L Carbon Dioxide (22-30) mmol/L Anion Gap mmol/L BUN (7-17) mg/dL Creatinine (0.52-1.04) mg/dL Est GFR (CKD-EPI)AfAm (>60 ml/min/1.73 sqM) Est GFR (CKD-EPI)NonAf (>60 ml/min/1.73 sqM) Glucose (74-99) mg/dL Plasma Lactic Acid Yazan 1.2 (0.7-2.0) mmol/L Calcium (8.4-10.2) mg/dL Magnesium (1.6-2.3) mg/dL Total Bilirubin (0.2-1.3) mg/dL AST (14-36) U/L ALT (4-34) U/L Alkaline Phosphatase (38-126) U/L Troponin I <0.012 (0.000-0.034) ng/mL NT-Pro-B Natriuret Pep 2710 pg/mL Total Protein (6.3-8.2) g/dL Albumin (3.5-5.0) g/dL Influenza Type A (PCR) (Not Detectd) Influenza Type B (PCR) (Not Detectd) RSV (PCR) (Not Detectd) SARS-CoV-2 (PCR) (Not Detectd) 12/27/20 Range/Units 10:15 WBC (3.8-10.6) k/uL RBC (3.80-5.40) m/uL Hgb (11.4-16.0) gm/dL Hct (34.0-46.0) % MCV (80.0-100.0) fL MCH (25.0-35.0) pg MCHC (31.0-37.0) g/dL RDW (11.5-15.5) % Plt Count (150-450) k/uL MPV Neutrophils % % Lymphocytes % % Monocytes % % Eosinophils % % Basophils % % Neutrophils # (1.3-7.7) k/uL Lymphocytes # (1.0-4.8) k/uL Monocytes # (0-1.0) k/uL Eosinophils # (0-0.7) k/uL Basophils # (0-0.2) k/uL PT (9.0-12.0) sec INR (<1.2) APTT (22.0-30.0) sec D-Dimer (<0.60) mg/L FEU Sodium (137-145) mmol/L Potassium (3.5-5.1) mmol/L Chloride (98-107) mmol/L Carbon Dioxide (22-30) mmol/L Anion Gap mmol/L BUN (7-17) mg/dL Creatinine (0.52-1.04) mg/dL Est GFR (CKD-EPI)AfAm (>60 ml/min/1.73 sqM) Est GFR (CKD-EPI)NonAf (>60 ml/min/1.73 sqM) Glucose (74-99) mg/dL Plasma Lactic Acid Yazan (0.7-2.0) mmol/L Calcium (8.4-10.2) mg/dL Magnesium (1.6-2.3) mg/dL Total Bilirubin (0.2-1.3) mg/dL AST (14-36) U/L ALT (4-34) U/L Alkaline Phosphatase (38-126) U/L Troponin I (0.000-0.034) ng/mL NT-Pro-B Natriuret Pep pg/mL Total Protein (6.3-8.2) g/dL Albumin (3.5-5.0) g/dL Influenza Type A (PCR) Not Detected (Not Detectd) Influenza Type B (PCR) Not Detected (Not Detectd) RSV (PCR) Not Detected (Not Detectd) SARS-CoV-2 (PCR) Not Detected (Not Detectd) - EKG Data -: EKG Interpreted by Me EKG shows normal: sinus rhythm EKG Comments: Sinus rhythm 83 TX interval 142 QRS duration 106 QT since QTC 460/48 red exodeviation incomplete right bundle-branch block RVH noted. Nonspecific ST-T wave configuration - Radiology Data Radiology results: report reviewed (Imaging reviewed no definitive increased markings), image reviewed Disposition Clinical Impression: Congestive heart failure, Peripheral edema, Elevated brain natriuretic peptide (BNP) level, Dyspnea, Hypertension Disposition: ADMITTED IP TO THIS HOSP Condition: Fair Referrals: None,Stated [Primary Care Provider] - 1-2 days
--- NOTE | 2020-12-27 10:19 | XR ---
EXAMINATION TYPE: XR chest 2V DATE OF EXAM: 12/27/2020 COMPARISON: 06/04/2020 HISTORY: Difficulty breathing TECHNIQUE: Frontal and lateral views of the chest are obtained. FINDINGS: There is no focal air space opacity, pleural effusion, or pneumothorax seen. The cardiac silhouette size is within normal limits. The osseous structures are intact. There is prominence in the hilar structures either related to the pulmonary arteries or hilar lymph nodes not appreciated on the prior study. IMPRESSION: Findings suggestive of hilar adenopathy is not present on the prior study. CT of the [address] might be useful for further evaluation
[2020-12-27 10:26] LABS: Basophils # (A) 0.1 k/uL (0-0.2); Basophils % (A) 1 %; Eosinophils # (A) 0.3 k/uL (0-0.7); Eosinophils % (A) 3 %; HCT 46.7 % (34.0-46.0); HGB 15.1 gm/dL (11.4-16.0); Lymphocytes % (A) 31 %; MCH 30.5 pg (25.0-35.0); MCHC 32.4 g/dL (31.0-37.0); MCV 94.3 fL (80.0-100.0); Mean Platelet Volume 8.9; Monocytes # (A) 0.5 k/uL (0-1.0); Monocytes % (A) 5 %; Neutrophils # (A) 5.6 k/uL (1.3-7.7); Neutrophils % (A) 58 %; Platelet Count 199 k/uL (150-450); RBC 4.95 m/uL (3.80-5.40); RDW 14.4 % (11.5-15.5); WBC 9.6 k/uL (3.8-10.6)
[2020-12-27 10:36] LABS: ALT 19 U/L (4-34); AST 28 U/L (14-36); African American GFR (CKD) >90 (>60 ml/min/1.73 sqM); Albumin 4.1 g/dL (3.5-5.0); Alkaline Phosphatase 112 U/L (38-126); Anion Gap 10 mmol/L; Blood Urea Nitrogen 15 mg/dL (7-17); Calcium 9.6 mg/dL (8.4-10.2); Carbon Dioxide 22 mmol/L (22-30); Chloride 104 mmol/L (98-107); Glucose 134 mg/dL (74-99); Magnesium 1.9 mg/dL (1.6-2.3); Non-African American GFR(CKD) >90 (>60 ml/min/1.73 sqM); Sodium 136 mmol/L (137-145); Total Bilirubin 0.8 mg/dL (0.2-1.3); Total Protein 7.3 g/dL (6.3-8.2)
[2020-12-27 10:41] LABS: Partial Thromboplastin Time 24.7 sec (22.0-30.0); Prothrombin Time 10.9 sec (9.0-12.0)
--- NOTE | 2020-12-27 12:27 | US ---
EXAMINATION TYPE: US venous doppler duplex LE DATE OF EXAM: 12/27/2020 12:21 PM COMPARISON: NONE CLINICAL HISTORY: Tenderness, elevated d-dimer. elevated d-dimer, no h/o clot, tender legs SIDE PERFORMED: Bilateral TECHNIQUE: The lower extremity deep venous system is examined utilizing real time linear array sonog shyam with graded compression, doppler sonography and color-flow sonography. VESSELS IMAGED: Common Femoral Vein Deep Femoral Vein Greater Saphenous Vein * Femoral Vein - duplicate on th left Popliteal Vein Small Saphenous Vein * Proximal Calf Veins (* superficial vessels) Right Leg: Negative for DVT Left Leg: Negative for DVT IMPRESSION: Grayscale, color doppler, spectral doppler imaging performed of the deep veins of the lo wer extremities. There is normal flow, compressibility, vascular waveforms. No evidence of bilatera l lower extremity DVT.
[2020-12-27] MEDS ORDERED: ENALAPRILAT 1.25 MG/ML 1 ML VIAL IVP STA (12:57)
[2020-12-27] MEDS ORDERED: FUROSEMIDE 10 MG/ML 4 ML VIAL IV STA (12:57)
[2020-12-27] MEDS ORDERED: IBUPROFEN 800 MG TAB PO PRN (14:13)
[2020-12-27] MEDS ORDERED: CYCLOBENZAPRINE 5 MG TAB PO PRN (14:13)
[2020-12-27] MEDS ORDERED: ALPRAZolam 0.25 MG TAB PO PRN (19:06)
--- NOTE | 2020-12-27 19:56 | CT ---
EXAMINATION TYPE: CT angio chest DATE OF EXAM: 12/27/2020 COMPARISON: None HISTORY: h/o CHF, SOB, elevated d-dimer CT DLP: 318.4 mGycm Automated exposure control for dose reduction was used. CONTRAST: Performed with IV Contrast, patient injected with 100 mL of Isovue 370. There are 3-D post processed images. The lungs are clear of consolidation. There is no evidence of a pulmonary mass. There is no pleural e ffusion. There is subsegmental atelectasis or scarring at the left posterior lung base. Heart size is fairly normal. There is no pericardial effusion. There are no hilar masses. There is no mediastinal adenopathy. There is normal contrast opacification of the pulmonary arteries. There are no filling defects. There is intact thoracic aorta. There is no aneurysm or dissection. The thoracic spine is intact. The re is no compression fracture. Sternum is intact. Shoulder joints are intact. I see no evidence of a rib fracture. IMPRESSION: Negative exam. No evidence of pulmonary embolism.
--- NOTE | 2020-12-27 20:03 | HP ---
HISTORY AND PHYSICAL DATE OF SERVICE: 12/27/2020. CHIEF COMPLAINT: Shortness of breath. HISTORY OF PRESENT ILLNESS: This 40-year-old woman with a past medical history of multiple medical problems, including CHF, history of small airway disease, history of nicotine dependence, being followed by Dr. Bennett [facility]. also had pulmonary hypertension. Currently the patient is complaining of some shortness of breath and some cough and cold. The patient phlegm. There is no history of any fever, rigor or chills, no history of headache, loss of consciousness, seizures at this time. The admission CBC was within normal limits. D-dimer was 0.6. Influenza RSV and COVID were negative. The patient had a chest x-ray which was reviewed personally by me. It showed prominent pulmonary arteries. Venous Doppler showed no evidence of DVT. The patient is admitted for further evaluation and treatment. EKG showed ST-T changes, incomplete right bundle branch block. No chest pain. No palpitations. No fever. No rigors. PAST MEDICAL HISTORY: Pulmonary hypertension, history of CHF, disease. HOME MEDICATIONS: Zestril, starter pack, Revatio, Motrin. Lasix and Flexeril. Doses are reviewed. ALLERGIES: NONE. FAMILY HISTORY: History of breast cancer in the family. SOCIAL HISTORY: No history of smoking. No history of alcohol intake. REVIEW OF SYSTEMS: ENT: No diminished hearing. No diminished vision. CARDIOVASCULAR SYSTEM: As mentioned earlier. RESPIRATORY SYSTEM: As mentioned earlier. GI: No nausea, vomiting, diarrhea. : No dysuria. NERVOUS SYSTEM: No numbness, weakness. ALLERGY/IMMUNOLOGY: No asthma or hay fever. MUSCULOSKELETAL: As mentioned earlier. HEMATOLOGY/ONCOLOGY: No history of anemia. ENDOCRINE: No history of diabetes or hypothyroidism. CONSTITUTIONAL: As mentioned earlier. DERMATOLOGY: Negative. RHEUMATOLOGY: Negative. PSYCHIATRY: As mentioned earlier. PHYSICAL EXAMINATION: Patient alert and oriented x3. Pulse 90, blood pressure 126/100, respiration 18, temperature normal, pulse ox 100% on room air. HEENT: Conjunctivae normal. NECK: No jugular venous distention. CARDIOVASCULAR: S1, S2 muffled. RESPIRATION: Breath sounds diminished at the bases. Scattered rhonchi. No crackles. ABDOMEN: Soft, nontender. No mass palpable. LEGS: No edema. No swelling. NERVOUS SYSTEM: Higher functions as mentioned earlier. Moves all 4 limbs. No focal motor or sensory deficit. LYMPHATICS: No lymph node palpable in neck, axillae or groin. SKIN: No ulcer, rash, bleeding. JOINTS: No active deforming arthropathy. LABS: Labs at this time show WBC 9.6, hemoglobin 15.1, and D-dimer is 0.6. Sodium is 136, glucose 135. ASSESSMENT: 1. Shortness of breath for evaluation; possibly pulmonary hypertension, acute exacerbation. 2. PRIMARY B pulmonary hypertension, possibly. 3. Elevated D-dimer. 4. Hyponatremia. 5. Elevated glucose. 6. History of congestive heart failure. 7. History of small AIRWAY disease. 8. History of nicotine dependence. RECOMMENDATIONS AND DISCUSSION: In this 40-year-old woman who presented with multiple complex medical issues, we will monitor the patient closely, continue the current medications. Resume the home medications. I would also recommend cardiology and pulmonology consultations. The D- dimer is elevated. I would also get a CT angio of the chest as well to rule out the possibility of pulmonary embolism. Prognosis is guarded because of multiple complex medical issues. Further recommendations to follow. MMODL / IJN: [id number] / ERIN
[2020-12-27] MEDS: FUROSEMIDE 10 MG/ML 4 ML VIAL IV SCH (21:01)
[2020-12-27] MEDS: HEPARIN SODIUM,PORCINE/PF 5,000 UNIT/0.5 ML SYRINGE SQ SCH (21:01)
[2020-12-28] MEDS: FUROSEMIDE 10 MG/ML 4 ML VIAL IV SCH ×3 (04:20→20:45)
[2020-12-28] MEDS ORDERED: PANTOPRAZOLE 40 MG TABLET PO SCH (07:30)
[2020-12-28 08:24] LABS: African American GFR (CKD) >90 (>60 ml/min/1.73 sqM); Anion Gap 9 mmol/L; Blood Urea Nitrogen 11 mg/dL (7-17); Calcium 9.3 mg/dL (8.4-10.2); Carbon Dioxide 29 mmol/L (22-30); Chloride 99 mmol/L (98-107); Glucose 108 mg/dL (74-99); Non-African American GFR(CKD) 87 (>60 ml/min/1.73 sqM); Potassium 3.8 mmol/L (3.5-5.1); Sodium 137 mmol/L (137-145)
[2020-12-28 08:33] LABS: Basophils # (A) 0.1 k/uL (0-0.2); Basophils % (A) 1 %; Eosinophils # (A) 0.4 k/uL (0-0.7); Eosinophils % (A) 4 %; HCT 49.4 % (34.0-46.0); HGB 16.2 gm/dL (11.4-16.0); Lymphocytes % (A) 29 %; MCH 30.9 pg (25.0-35.0); MCHC 32.8 g/dL (31.0-37.0); MCV 94.1 fL (80.0-100.0); Mean Platelet Volume 8.9; Monocytes # (A) 0.7 k/uL (0-1.0); Monocytes % (A) 6 %; Neutrophils # (A) 6.3 k/uL (1.3-7.7); Neutrophils % (A) 59 %; Platelet Count 240 k/uL (150-450); RBC 5.24 m/uL (3.80-5.40); RDW 14.3 % (11.5-15.5); WBC 10.6 k/uL (3.8-10.6)
[2020-12-28] MEDS: HEPARIN SODIUM,PORCINE/PF 5,000 UNIT/0.5 ML SYRINGE SQ SCH ×2 (08:53→20:52)
[2020-12-28] MEDS ORDERED: ASPIRIN 325 MG TAB PO SCH (09:00)
[2020-12-28] MEDS ORDERED: lisinopriL 5 MG TAB PO SCH (09:00)
[2020-12-28] MEDS ORDERED: SILDENAFIL 20 MG TAB PO SCH (09:00)
--- NOTE | 2020-12-28 09:39 | P.CRDCN ---
History of Present Illness Consult date: 12/28/20 History of present illness: HISTORY OF PRESENT ILLNESS: This is a 40-year-old female with a past medical history significant for hypertension, pulmonary hypertension, and congestive heart failure. Patient follows with a specialist at [facility]. We have been asked to see the patient in consultation for congestive heart failure. Patient examined at the bedside. Patient reports chronic shortness of breath but states it has been worse since Tuesday. She reports increased lower extremity edema as well. Patient states she has been compliant with her medications for the most part but does admit to missing a few doses of Lasix. Patient was found to be in congestive heart failure when she presented to the hospital was placed on IV Lasix. The patient states her breathing has improved today. She is asking to be discharged home this afternoon. EKG reveals sinus mechanism with incomplete right bundle branch block. T wave inversions in inferior leads. Chest xray findings suggestive of hilar adenopathy which is not present on prior study. Chest CTA: Negative exam. No evidence of pulmonary embolism. Laboratory data: WBC 10.6. Hemoglobin 16.2. Platelet count 240. D-dimer 0.60. Sodium 137. Potassium 3.8. BUN 11. Creatinine 0.84. Lactic acid 1.2. ProBNP 2710. Current home cardiac medications include lisinopril 5 mg daily, Lasix 80 mg in the morning and 40 mg at night. Limited echocardiogram completed in April 2020 revealed ejection fraction 55%. Previous echocardiogram completed in February 2020 revealed ejection fraction 60-65%, [id number] tricuspid regurgitation, moderate to severe pulmonary hypertension with RVSP of 58.53 mmHg. REVIEW OF SYSTEMS: At the time of my exam: CONSTITUTIONAL: Denies fever or chills. HEENT: Denies blurred vision, vision changes, or eye pain. Denies hemoptysis CARDIOVASCULAR: Denies chest pain. Denies orthopnea. Denies PND. Denies palpitations RESPIRATORY: Denies shortness of breath. GASTROINTESTINAL: Denies abdominal pain. Denies nausea or vomiting. HEMATOLOGIC: Denies bleeding disorders. GENITOURINARY: Denies any blood in urine. SKIN: Denies pruitis. Denies rash. PHYSICAL EXAM: VITAL SIGNS: Reviewed. GENERAL: Well-developed in no acute distress. HEENT: Head is normocephalic. Pupils are equal, round. Sclerae anicteric. Mucous membranes of the mouth are moist. Neck supple. No JVD or thyromegaly LUNGS: Respirations even and unlabored. Lungs diminished to auscultation bilaterally. HEART: Regular rate and rhythm. S1 and S2 heard. ABDOMEN: Soft. Nondistended. Nontender. EXTREMITIES: Normal range of motion. No clubbing or cyanosis. Peripheral pulses intact. Trace lower extremity edema NEUROLOGIC: Awake and alert. Oriented x 3. ASSESSMENT: Acute on chronic diastolic heart failure Severe pulmonary hypertension Systemic hypertension PLAN: Obtain 2D echo to assess cardiac structure and function Continue IV lasix Patient requesting to be discharged home this afternoon as she has a 7 year daughter and states she can not stay in the hospital another day. Agreeable to discharge home today with outpatient follow up. Nurse practitioner note has been reviewed by physician. Signing provider agrees with the documented findings, assessment, and plan of care. Past Medical History Past Medical History: Heart Failure Additional Past Medical History / Comment(s): small airway disease. History of Any Multi-Drug Resistant Organisms: None Reported Past Surgical History: No Surgical Hx Reported Additional Past Surgical History / Comment(s): 5 vaginal deliveries Past Anesthesia/Blood Transfusion Reactions: No Reported Reaction Past Psychological History: No Psychological Hx Reported Smoking Status: Former smoker Past Alcohol Use History: None Reported Past Drug Use History: None Reported Additional Drug Use History / Comment(s): Smokes 1/2 pack per day. - Past Family History Mother Family Medical History: Cancer Additional Family Medical History / Comment(s): Breast CA. family Family Medical History: No Reported History Medications and Allergies Home Medications Medication Instructions Recorded Confirmed Type lisinopriL [Zestril] 5 mg PO DAILY 06/04/20 12/27/20 History Cyclobenzaprine [Flexeril] 5 mg PO Q8H PRN 12/27/20 12/27/20 History Furosemide [Lasix] 40 mg PO HS 12/27/20 12/27/20 History Furosemide [Lasix] 80 mg PO DAILY 12/27/20 12/27/20 History Ibuprofen [Motrin] 800 mg PO Q8H PRN 12/27/20 12/27/20 History Sildenafil [Revatio] 20 mg PO DAILY 12/27/20 12/27/20 History Tyvaso Starter Kit 1.74mg/2.9 1 vial INHALATION RT-QID 12/27/20 12/27/20 History Allergies Allergy/AdvReac Type Severity Reaction Status Date / Time No Known Allergies Allergy Verified 12/27/20 13:02 Physical Exam Vitals: Vital Signs Temp Pulse Pulse Resp BP BP Pulse Ox 12/28/20 08:51 98.0 F 77 18 143/98 100 12/28/20 04:00 97.5 F L 84 17 131/96 100 12/27/20 21:08 92 18 127/101 98 12/27/20 18:25 90 18 126/100 100 12/27/20 16:12 97.5 F L 84 17 131/96 100 12/27/20 14:27 88 18 143/103 98 12/27/20 14:01 78 18 144/103 99 12/27/20 13:31 98 18 161/115 12/27/20 12:53 93 18 166/129 100 12/27/20 11:04 89 20 183/130 98 12/27/20 10:21 78 18 154/104 100 Intake and Output 12/27/20 12/28/20 12/28/20 22:59 06:59 14:59 Other: Voiding Method Toilet Weight 65.4 kg 65.4 kg Results 12/28/20 07:30 12/28/20 07:30 Cardiac Enzymes 12/27/20 12/27/20 Range/Units 10:15 10:15 AST 28 (14-36) U/L Troponin I <0.012 (0.000-0.034) ng/mL Coagulation 12/27/20 Range/Units 10:15 PT 10.9 (9.0-12.0) sec APTT 24.7 (22.0-30.0) sec CBC 12/27/20 12/28/20 Range/Units 10:15 07:30 WBC 9.6 10.6 (3.8-10.6) k/uL RBC 4.95 5.24 (3.80-5.40) m/uL Hgb 15.1 16.2 H (11.4-16.0) gm/dL Hct 46.7 H 49.4 H (34.0-46.0) % Plt Count 199 240 (150-450) k/uL Comprehensive Metabolic Panel 12/27/20 12/28/20 Range/Units 10:15 07:30 Sodium 136 L 137 (137-145) mmol/L Potassium 4.0 3.8 (3.5-5.1) mmol/L Chloride 104 99 (98-107) mmol/L Carbon Dioxide 22 29 (22-30) mmol/L BUN 15 11 (7-17) mg/dL Creatinine 0.76 0.84 (0.52-1.04) mg/dL Glucose 134 H 108 H (74-99) mg/dL Calcium 9.6 9.3 (8.4-10.2) mg/dL AST 28 (14-36) U/L ALT 19 (4-34) U/L Alkaline Phosphatase 112 (38-126) U/L Total Protein 7.3 (6.3-8.2) g/dL Albumin 4.1 (3.5-5.0) g/dL Current Medications Generic Name Dose Route Start Last Admin Trade Name Freq PRN Reason Stop Dose Admin Alprazolam 0.25 mg 12/27/20 19:06 12/28/20 04:20 Alprazolam 0.25 Mg Tab PO 0.25 mg TID PRN Administration Anxiety Aspirin 325 mg 12/28/20 09:00 12/28/20 08:53 Aspirin 325 Mg Tab PO 325 mg DAILY MICHELLE Administration Cyclobenzaprine HCl 5 mg 12/27/20 14:13 12/27/20 21:03 Cyclobenzaprine 5 Mg Tab PO 5 mg Q8H PRN Administration Pain Furosemide 40 mg 12/27/20 21:00 12/28/20 04:20 Furosemide 10 Mg/Ml 4 Ml Vial IV 40 mg Q8H MICHELLE Administration Heparin Sodium (Porcine) 5,000 unit 12/27/20 21:00 12/28/20 08:53 Heparin Sodium,Porcine/Pf 5,000 Unit/0.5 Ml Syringe SQ 5,000 unit Q12HR MICHELLE Administration Ibuprofen 800 mg 12/27/20 14:13 12/28/20 08:53 Ibuprofen 800 Mg Tab PO 800 mg Q8H PRN Administration Pain Lisinopril 5 mg 12/28/20 09:00 12/28/20 08:53 Lisinopril 5 Mg Tab PO 5 mg DAILY MICHELLE Administration Pantoprazole Sodium 40 mg 12/28/20 07:30 12/28/20 06:31 Pantoprazole 40 Mg Tablet PO 40 mg [id number] MICHELLE Administration Sildenafil Citrate 20 mg 12/28/20 09:00 12/28/20 08:53 Sildenafil 20 Mg Tab PO 20 mg DAILY MICHELLE Administration Intake and Output 12/27/20 12/28/20 12/28/20 22:59 06:59 14:59 Other: Voiding Method Toilet Weight 65.4 kg 65.4 kg 12/28/20 07:30 12/28/20 07:30
--- NOTE | 2020-12-28 18:12 | PN ---
PROGRESS NOTE DATE OF SERVICE: 12/28/2020 This 40-year-old woman who was admitted with shortness of breath, possibly CHF, acute exacerbation, also has a history of pulmonary hypertension. The patient is on IV diuretics at this time. The patient is followed at the [facility] also. Acute on chronic diastolic heart failure is also a concern. CT angio of the chest showed no evidence of pulmonary embolism. PHYSICAL EXAMINATION: Alert and oriented x3. Pulse 76, blood pressure 149/70, respiration 18, temperature 98 degrees, pulse ox 97% on room air. HEENT: Conjunctivae normal. NECK: No jugular venous distention. CARDIOVASCULAR: S1, S2 muffled. RESPIRATION: Breath sounds diminished at the bases. A few scattered rhonchi. ABDOMEN: Soft. NERVOUS SYSTEM: No focal deficit. LABS: Hemoglobin 16.2, sodium 137. NT proBNP is 2710. ASSESSMENT: 1. Shortness of breath, possible congestive heart failure, acute exacerbation, with acute on chronic diastolic dysfunction. 2. Primary pulmonary hypertension. 3. Elevated D-dimer without any evidence of acute pulmonary embolism. 4. Hyponatremia. 5. Elevated glucose. 6. History of congestive heart failure. 7. History of small airway disease. 8. History of nicotine dependence. RECOMMENDATIONS AND DISCUSSION: I recommend to continue current medications, continue with symptomatic treatment. Continue with Lasix. Closely follow with Cardiology. Continue the rest of the medications. Guarded prognosis because of multiple complex medical issues. Further recommendations to follow. MMODL / IJN: [id number] /
[2020-12-28 22:29] VITALS: BP 116/86; PULSE 101; RESP 16; TEMP 97.4
== END 2020-12-28 21:30 | disposition left against medical advice (07) ==
LOC: EC 09:05 → INTOOBSV 14:07 → 3SCARD 14:07
PROVIDERS: ADMIT Internal Medicine; ATTEND Internal Medicine
DX: I11.0 Hypertensive heart disease with heart failure (principal); I50.33 Acute on chronic diastolic (congestive) heart failure; I27.0 Primary pulmonary hypertension; E87.1 Hypo-osmolality and hyponatremia; I45.19 Other right bundle-branch block; R73.9 Hyperglycemia, unspecified; Z20.822 Contact with and (suspected) exposure to COVID-19; Z91.14 Patient's other noncompliance with medication regimen; F17.210 Nicotine dependence, cigarettes, uncomplicated; Z79.899 Other long term (current) drug therapy; Z80.3 Family history of malignant neoplasm of breast
CPT/HCPCS: 99285; 96376 ×2; 96372 ×2; 96374; 96375; 36415; 93005; 93306; 85379; 83880; 80053; 80048; 83605; 83735; 84484; 85025 ×2; 85610; 85730; 87040; 87636; 71046; 93970; 71275; G0378 ×2; J1940 ×2; Q9967; J1644 ×2

== ENCOUNTER → 2021-04-18 | Outpatient (CLI) | payer OTHER ==
--- NOTE | 2021-04-18 13:48 | MR ---
EXAMINATION TYPE: MR brain wo/w con DATE OF EXAM: 04/18/2021 COMPARISON: NONE HISTORY: Altered mental status, and evaluating for stroke. Patient states recent diagnosis of stage 4 pulmonary heart failure TECHNIQUE: Multiplanar, multisequence images of the brain and brainstem is performed without and with IV contras t, utilizing 6.5 mL intravenous Gadavist . FINDINGS: Exam is slightly suboptimal as there is significant patient motion, multiple repeat sequenc es were performed. Diffusion weighted images demonstrate no evidence of a recent infarct or other dif fusion abnormality. There is no extra-axial fluid collection or significant white matter signal abno rmality. The ventricular system and cisternal spaces are normal in size and appearance. The brain v olume is age appropriate. Midline structures demonstrate normal morphology. The craniocervical junction appears within normal limits. Post contrast images demonstrate no abnormal enhancement. The dural venous sinuses appear pa tent. The visualized sinuses are clear and the globes are intact. Nasal septum deviated to right of m idline. IMPRESSION: Suboptimal limited study. No recent infarct. No obvious suspicious abnormality.
== END | disposition home or self-care (01) ==
LOC: RADMRIMAIN 12:48
PROVIDERS: ATTEND Nurse Practitioner
DX: R41.82 Altered mental status, unspecified (principal)
CPT/HCPCS: 70553; A9585

== ENCOUNTER 2023-03-23 15:29 | Inpatient (IN) | payer MEDICARE, OTHER ==
--- NOTE | 2023-03-23 16:41 | XR ---
EXAMINATION TYPE: XR chest 2V DATE OF EXAM: 03/23/2023 4:30 PM CLINICAL INDICATION:Female, 42 years old with history of HEATHER; [facility] COMPARISON: Chest radiographs from 06/26/2021. TECHNIQUE: XR chest 2V Frontal and lateral views of the chest. FINDINGS: Lungs/Pleura: There is no evidence of pleural effusion, focal consolidation, or pneumothorax. Pulmonary vascularity: Unremarkable. Heart/mediastinum: Cardiomediastinal silhouette is unremarkable. A loop recorder projects over the le ft thorax over the heart. Musculoskeletal: No acute osseous pathology. IMPRESSION: No acute cardiopulmonary disease/process.
--- NOTE | 2023-03-23 17:02 | ED ---
URI HPI - General Source: patient Mode of arrival: ambulatory Limitations: no limitations <Niurka Ponce - Last Filed: 03/23/23 17:58> - General Source: RN notes reviewed, old records reviewed - History of Present Illness MD Complaint: fever, cough, sore throat -: days(s) Severity: moderate Severity scale (1-10): 5 Consistency: constant Improves With: nothing Associated Symptoms: denies other symptoms <Villa Martines - Last Filed: 03/23/23 21:01> - General Chief Complaint: Upper Respiratory Infection Stated Complaint: HEATHER Time Seen by Provider: 03/23/23 16:58 - History of Present Illness Initial Comments: Quicknote: 42 y/o female presenting with CC "I cant breathe". States she is currently withdrawing from heroin. (Niurka Ponce) This is a 42-year-old female DF for evaluation of difficulty breathing nausea vomiting diarrhea weakness and shaking. Patient believes she may be going through heroin withdrawal with significant history of heart failure (Villa Martines) - Related Data Home Medications Medication Instructions Recorded Confirmed Sildenafil [Revatio] 20 mg PO TID 12/27/20 03/23/23 Apixaban [Eliquis] 5 mg PO BID 03/23/23 03/23/23 Omeprazole 20 mg PO BID 03/23/23 03/23/23 Sertraline [Zoloft] 75 mg PO DAILY 03/23/23 03/23/23 amLODIPine [Norvasc] 5 mg PO DAILY 03/23/23 03/23/23 Allergies Allergy/AdvReac Type Severity Reaction Status Date / Time No Known Allergies Allergy Verified 03/23/23 20:28 Review of Systems ROS Other: All systems not noted in ROS Statement are negative. <Niurka Ponce - Last Filed: 03/23/23 17:58> ROS Other: All systems not noted in ROS Statement are negative. <Villa Martines - Last Filed: 03/23/23 21:01> ROS Statement: Those systems with pertinent positive or pertinent negative responses have been documented in the HPI. Past Medical History Past Medical History: Heart Failure Additional Past Medical History / Comment(s): small airway disease. History of Any Multi-Drug Resistant Organisms: None Reported Past Surgical History: No Surgical Hx Reported Additional Past Surgical History / Comment(s): 5 vaginal deliveries Past Anesthesia/Blood Transfusion Reactions: No Reported Reaction Past Psychological History: No Psychological Hx Reported Smoking Status: Former smoker Past Alcohol Use History: None Reported Past Drug Use History: None Reported - Past Family History Mother Family Medical History: Cancer Additional Family Medical History / Comment(s): Breast CA. family Family Medical History: No Reported History <Niurka Ponce - Last Filed: 03/23/23 17:58> General Exam Limitations: no limitations <Niurka Ponce - Last Filed: 03/23/23 17:58> General appearance: alert, in no apparent distress Head exam: Present: atraumatic, normocephalic, normal inspection Eye exam: Present: normal appearance, PERRL, EOMI. Absent: scleral icterus, conjunctival injection, periorbital swelling ENT exam: Present: normal exam, mucous membranes moist Neck exam: Present: normal inspection. Absent: tenderness, meningismus, lymphadenopathy Respiratory exam: Present: normal lung sounds bilaterally. Absent: respiratory distress, wheezes, rales, rhonchi, stridor Cardiovascular Exam: Present: regular rate, normal rhythm, normal heart sounds. Absent: systolic murmur, diastolic murmur, rubs, gallop, clicks GI/Abdominal exam: Present: soft, normal bowel sounds. Absent: distended, tenderness, guarding, rebound, rigid Extremities exam: Present: normal inspection, full ROM, normal capillary refill. Absent: tenderness, pedal edema, joint swelling, calf tenderness Back exam: Present: normal inspection Neurological exam: Present: alert, oriented X3, CN II-XII intact Psychiatric exam: Present: normal affect, normal mood Skin exam: Present: warm, dry, intact, normal color. Absent: rash <Villa Martines - Last Filed: 03/23/23 21:01> Course <Villa Martines - Last Filed: 03/23/23 21:01> Vital Signs 03/23/23 03/23/23 15:30 20:25 Temperature 98.0 F Pulse Rate 104 H 129 H Respiratory 20 18 Rate Blood Pressure 169/99 146/110 O2 Sat by Pulse 100 96 Oximetry - Reevaluation(s) Reevaluation #1: 03/23/23 21:00 Records reviewed (Villa Martines) Reevaluation #2: 03/23/23 21:00 Patient symptoms are improving here in the ER (Villa Martines) Reevaluation #3: 03/23/23 21:00 Patient informed of results and questions answered (Villa Martines) Reevaluation #4: 03/23/23 20:11 Was pt. sent in by a medical professional or institution (RAHUL Mckeon, PUMPING STATION SUPERVISOR, urgent care, hospital, or snf...) When possible be specific @ -no Did you speak to anyone other than the patient for history (EMS, parent, family, police, friend...)? What history was obtained from this source @ -no Did you review nursing and triage notes (agree or disagree)? Why? @ -agree Are old charts reviewed (outside hosp., previous admission, EMS record, old EKG, old radiological studies, urgent care reports/EKG's, snf records)? Report findings @ -yes Differential Diagnosis (chest pain, altered mental status, abdominal pain women, abdominal pain men, vaginal bleeding, weakness, fever, dyspnea, syncope, headache, dizziness, GI bleed, back pain, seizure, CVA, palpatations, mental health, musculoskeletal)? @ -prior EKG interpreted by me (3pts min.). @ -yes X-rays interpreted by me (1pt min.). @ -yes CT interpreted by me (1pt min.). @ -no U/S interpreted by me (1pt. min.). @ -no What testing was considered but not performed or refused? (CT, X-rays, U/S, labs)? Why? @ -none What meds were considered but not given or refused? Why? @ -none Did you discuss the management of the patient with other professionals (professionals i.e. RAHUL Mckeon, PU[employer]ING [employer]ATION SUPERVISOR, lab, RT, psych nurse, social sciences lecturer, options trader, teacher, giving officer, case advocate)? Give summary @ -no Was smoking cessation discussed for >3mins.? @ -no Was critical care preformed (if so, how long)? @ -no Were there social determinants of health that impacted care today? How? (Homelessness, low income, unemployed, alcoholism, drug addiction, transportation, low edu. Level, literacy, decrease access to med. care, snf, rehab)? @ -none Was there de-escalation of care discussed even if they declined (Discuss DNR or withdrawal of care, Hospice)? DNR status @ -no What co-morbidities impacted this encounter? (DM, HTN, Smoking, COPD, CAD, Cancer, CVA, ARF, Chemo, Hep., AIDS, mental health diagnosis, sleep apnea, morbid obesity)? @ -none Was patient admitted / discharged? Hospital course, mention meds given and route, prescriptions, significant lab abnormalities, going to OR and other pertinent info. @ - Undiagnosed new problem with uncertain prognosis? @ -no Drug Therapy requiring intensive monitoring for toxicity (Heparin, Nitro, Insulin, Cardizem)? @ -no Were any procedures done? @ -no Diagnosis/symptom? @ - Acute, or Chronic, or Acute on Chronic? @ -Acute Uncomplicated (without systemic symptoms) or Complicated (systemic symptoms)? @ -Complicated Side effects of treatment? @ -no Exacerbation, Progression, or Severe Exacerbation? @ -exacerbation Poses a threat to life or bodily function? How? (Chest pain, USA, MS, pneumonia, PE, COPD, DKA, ARF, appy, cholecystitis, CVA, Diverticulitis, Homicidal, Suicidal, threat to staff... and all critical care pts) @ -yes (Villa Martines) Reevaluation #5: 03/23/23 20:11 Differential Weakness: Hypoglycemia, shock, sepsis, hyponatremia, anemia, infection, MS, ETOH, adverse medicine reaction, overdose, stroke, this is not meant to be an all-inclusive list. (Villa Martines) - Consultations Consultation #1: KHANG to agrees to admit this patient (Villa Martines) Medical Decision Making - Lab Data Result diagrams: 03/23/23 19:32 03/23/23 19:32 - EKG Data -: EKG Interpreted by Me (EKG is sinus 81 MA 167 QRS 118 QTC 382) - Radiology Data Radiology results: report reviewed (Chest x-rays negative for acute disease), image reviewed <Villa Martines - Last Filed: 03/23/23 21:01> - Medical Decision Making 42 female will be admitted for her control with history of heart failure and ischemic changes on EKG (Villa Martines) - Lab Data Lab Results 03/23/23 03/23/23 03/23/23 Range/Units 15:35 19:32 19:32 WBC 15.3 H (3.8-10.6) k/uL RBC 5.22 (3.80-5.40) m/uL Hgb 14.5 (11.4-16.0) gm/dL Hct 43.5 (34.0-46.0) % MCV 83.3 (80.0-100.0) fL MCH 27.8 (25.0-35.0) pg MCHC 33.4 (31.0-37.0) g/dL RDW 14.2 (11.5-15.5) % Plt Count 226 (150-450) k/uL MPV 9.7 Neutrophils % 76 % Lymphocytes % 18 % Monocytes % 4 % Eosinophils % 1 % Basophils % 0 % Neutrophils # 11.6 H (1.3-7.7) k/uL Lymphocytes # 2.7 (1.0-4.8) k/uL Monocytes # 0.6 (0-1.0) k/uL Eosinophils # 0.2 (0-0.7) k/uL Basophils # 0.1 (0-0.2) k/uL PT 11.9 (10.0-12.5) sec INR 1.1 (<1.2) APTT 26.7 (22.0-30.0) sec Sodium (137-145) mmol/L Potassium (3.5-5.1) mmol/L Chloride (98-107) mmol/L Carbon Dioxide (22-30) mmol/L Anion Gap mmol/L BUN (7-17) mg/dL Creatinine (0.52-1.04) mg/dL Est GFR (CKD-EPI)AfAm (>60 ml/min/1.73 sqM) Est GFR (CKD-EPI)NonAf (>60 ml/min/1.73 sqM) Glucose (74-99) mg/dL Plasma Lactic Acid Yazan (0.7-2.0) mmol/L Calcium (8.4-10.2) mg/dL Phosphorus (2.5-4.5) mg/dL Magnesium (1.6-2.3) mg/dL Total Bilirubin (0.2-1.3) mg/dL AST (14-36) U/L ALT (4-34) U/L Alkaline Phosphatase (38-126) U/L Troponin I (0.000-0.034) ng/mL NT-Pro-B Natriuret Pep pg/mL Total Protein (6.3-8.2) g/dL Albumin (3.5-5.0) g/dL Influenza Type A (PCR) Not Detected (Not Detectd) Influenza Type B (PCR) Not Detected (Not Detectd) RSV (PCR) Not Detected (Not Detectd) SARS-CoV-2 (PCR) Not Detected (Not Detectd) 03/23/23 03/23/23 03/23/23 Range/Units 19:32 19:32 19:32 WBC (3.8-10.6) k/uL RBC (3.80-5.40) m/uL Hgb (11.4-16.0) gm/dL Hct (34.0-46.0) % MCV (80.0-100.0) fL MCH (25.0-35.0) pg MCHC (31.0-37.0) g/dL RDW (11.5-15.5) % Plt Count (150-450) k/uL MPV Neutrophils % % Lymphocytes % % Monocytes % % Eosinophils % % Basophils % % Neutrophils # (1.3-7.7) k/uL Lymphocytes # (1.0-4.8) k/uL Monocytes # (0-1.0) k/uL Eosinophils # (0-0.7) k/uL Basophils # (0-0.2) k/uL PT (10.0-12.5) sec INR (<1.2) APTT (22.0-30.0) sec Sodium 136 L (137-145) mmol/L Potassium 3.7 (3.5-5.1) mmol/L Chloride 102 (98-107) mmol/L Carbon Dioxide 20 L (22-30) mmol/L Anion Gap 14 mmol/L BUN 9 (7-17) mg/dL Creatinine 0.45 L (0.52-1.04) mg/dL Est GFR (CKD-EPI)AfAm >90 (>60 ml/min/1.73 sqM) Est GFR (CKD-EPI)NonAf >90 (>60 ml/min/1.73 sqM) Glucose 98 (74-99) mg/dL Plasma Lactic Acid Yazan 1.6 (0.7-2.0) mmol/L Calcium 10.1 (8.4-10.2) mg/dL Phosphorus 3.8 (2.5-4.5) mg/dL Magnesium 1.7 (1.6-2.3) mg/dL Total Bilirubin 1.2 (0.2-1.3) mg/dL AST 23 (14-36) U/L ALT 16 (4-34) U/L Alkaline Phosphatase 116 (38-126) U/L Troponin I <0.012 (0.000-0.034) ng/mL NT-Pro-B Natriuret Pep 2730 pg/mL Total Protein 8.4 H (6.3-8.2) g/dL Albumin 4.6 (3.5-5.0) g/dL Influenza Type A (PCR) (Not Detectd) Influenza Type B (PCR) (Not Detectd) RSV (PCR) (Not Detectd) SARS-CoV-2 (PCR) (Not Detectd) Disposition <Niurka Ponce - Last Filed: 03/23/23 17:58> Is patient prescribed a controlled substance at d/c from ED?: No Time of Disposition: 20:00 <Villa Martines - Last Filed: 03/23/23 21:01> Clinical Impression: Dyspnea, Heroin withdrawal, Weakness, Tachycardia, Congestive heart failure Disposition: ADMITTED IP TO THIS HOSP Condition: Serious
[2023-03-23] MEDS ORDERED: MORPHINE SULFATE 2 MG/ML SYRINGE IVP PRN (19:31)
[2023-03-23] MEDS ORDERED: LABETALOL 5 MG/ML VIAL MDV IVP STA (19:31)
[2023-03-23] MEDS ORDERED: MORPHINE SULFATE 2 MG/ML SYRINGE IVP STA (19:31)
[2023-03-23] MEDS ORDERED: ONDANSETRON 4 MG/2 ML VIAL IVP STA (19:31)
[2023-03-23] MEDS ORDERED: ONDANSETRON 4 MG/2 ML VIAL IVP PRN (19:31)
[2023-03-23] MEDS ORDERED: SODIUM CHLORIDE 0.9% 1,000 ML IV STA ×2 (19:31)
[2023-03-23] MEDS ORDERED: SODIUM CHLORIDE 0.9% 500 ML 500 ML IV STA (19:31)
[2023-03-23 19:38] LABS: Basophils # (A) 0.1 k/uL (0-0.2); Basophils % (A) 0 %; Eosinophils # (A) 0.2 k/uL (0-0.7); Eosinophils % (A) 1 %; HCT 43.5 % (34.0-46.0); HGB 14.5 gm/dL (11.4-16.0); Lymphocytes # (A) 2.7 k/uL (1.0-4.8); Lymphocytes % (A) 18 %; MCH 27.8 pg (25.0-35.0); MCHC 33.4 g/dL (31.0-37.0); MCV 83.3 fL (80.0-100.0); Mean Platelet Volume 9.7; Monocytes # (A) 0.6 k/uL (0-1.0); Monocytes % (A) 4 %; Neutrophils # (A) 11.6 k/uL (1.3-7.7); Neutrophils % (A) 76 %; Platelet Count 226 k/uL (150-450); RBC 5.22 m/uL (3.80-5.40); RDW 14.2 % (11.5-15.5); WBC 15.3 k/uL (3.8-10.6)
[2023-03-23 19:47] LABS: INR 1.1 (<1.2); Partial Thromboplastin Time 26.7 sec (22.0-30.0); Prothrombin Time 11.9 sec (10.0-12.5)
[2023-03-23] MEDS ORDERED: MORPHINE SULFATE 4 MG/ML SYRINGE IV PRN (19:58)
[2023-03-23] MEDS ORDERED: NALOXONE 0.4 MG/ML 1 ML VIAL IV PRN (19:58)
[2023-03-23] MEDS ORDERED: LORazepam 2 MG/ML INJ IV PRN (19:59)
[2023-03-23] MEDS ORDERED: LORazepam 2 MG/ML INJ IV STA (19:59)
[2023-03-23] MEDS ORDERED: cloNIDine 0.3 MG/24HR PATCH TRANSDERM SCH (20:00)
[2023-03-23 20:01] LABS: ALT 16 U/L (4-34); AST 23 U/L (14-36); African American GFR (CKD) >90 (>60 ml/min/1.73 sqM); Albumin 4.6 g/dL (3.5-5.0); Alkaline Phosphatase 116 U/L (38-126); Anion Gap 14 mmol/L; Blood Urea Nitrogen 9 mg/dL (7-17); Calcium 10.1 mg/dL (8.4-10.2); Carbon Dioxide 20 mmol/L (22-30); Chloride 102 mmol/L (98-107); Glucose 98 mg/dL (74-99); Magnesium 1.7 mg/dL (1.6-2.3); Non-African American GFR(CKD) >90 (>60 ml/min/1.73 sqM); Phosphorus 3.8 mg/dL (2.5-4.5); Potassium 3.7 mmol/L (3.5-5.1); Sodium 136 mmol/L (137-145); Total Bilirubin 1.2 mg/dL (0.2-1.3); Total Protein 8.4 g/dL (6.3-8.2)
[2023-03-23 20:10] LABS: NT-Pro-B-Type Natriuretic Pept 2730 pg/mL
--- NOTE | 2023-03-24 03:35 | P.HPIM ---
History of Present Illness H&P Date: 03/23/23 Chief Complaint: shortness of breath 42 year old female with history of diastolic CHF , and pulmonary hypertension patient does not participate in history taking , shows no interest , and has poor insight of her over all clinical status she reports shortness of breath , of couple days duration, and admits to snorting heroin , last dose 3 days ago, and she feels she is going through withdrawal, however, denies any diarrhea , abd pain, nasuea or vomiting, when I asked her why you think you are going through withdrawal, she did not answer. she did not provide any answers , when asked more questions regarding her shortness of breath, she does not provide any context, she does not specify if she is experiencing any URI symptoms , fever, chills, does not answer regarding orthopnea or exertional dyspnea, duration of symptoms , or if she is experiencing any chest pain. patient is withdrawn and does not show interest to participate in interview patient does not answer when asked regarding her blood thinner , Eliquis , why she takes it , and if she is compliant with it . is unknown review of systems unknown , patient does not answer my questions on exam Constitutional: No acute distress, uncooperative Eyes: Anicteric sclerae, moist conjunctiva, Pupils equal round reactive to light Neck: Supple, no masses, or JVD No carotid bruits No thyromegaly Lungs: Clear to auscultation Clear to percussion Normal respiratory effort, no accessory muscle use Cardiovascular: Heart regular in rate and rhythm, No murmurs, gallops, or rubs No peripheral edema Abdominal: Soft Nontender, no guarding, rebound or rigidity Abdomen moving with respiration Normoactive bowel sounds No hepatomegaly, No splenomegaly No palpable mass Extremities: No digital cyanosis No clubbing Pedal pulses intact and symmetrical Radial pulses intact and symmetrical No calf tenderness Psychiatric: Alert and oriented to person, place Neuro moving all 4 extremities spontaneously and purposefully , does not participate in neuro exam Lymphatics: no palpable cervical or supraclavicular lymph nodes Past Medical History Past Medical History: Heart Failure Additional Past Medical History / Comment(s): small airway disease. History of Any Multi-Drug Resistant Organisms: None Reported Past Surgical History: No Surgical Hx Reported Additional Past Surgical History / Comment(s): 5 vaginal deliveries Past Anesthesia/Blood Transfusion Reactions: No Reported Reaction Past Psychological History: No Psychological Hx Reported Smoking Status: Former smoker Past Alcohol Use History: None Reported Past Drug Use History: None Reported - Past Family History Mother Family Medical History: Cancer Additional Family Medical History / Comment(s): Breast CA. family Family Medical History: No Reported History Medications and Allergies Home Medications Medication Instructions Recorded Confirmed Type Sildenafil [Revatio] 20 mg PO TID 12/27/20 03/23/23 History Apixaban [Eliquis] 5 mg PO BID 03/23/23 03/23/23 History Omeprazole 20 mg PO BID 03/23/23 03/23/23 History Sertraline [Zoloft] 75 mg PO DAILY 03/23/23 03/23/23 History amLODIPine [Norvasc] 5 mg PO DAILY 03/23/23 03/23/23 History Allergies Allergy/AdvReac Type Severity Reaction Status Date / Time No Known Allergies Allergy Verified 03/23/23 20:28 Physical Exam Vitals: Vital Signs Temp Pulse Resp BP Pulse Ox 03/23/23 22:03 112 H 20 112/83 97 03/23/23 21:01 109 H 16 125/102 98 03/23/23 20:25 129 H 18 146/110 96 03/23/23 15:30 98.0 F 104 H 20 169/99 100 Intake and Output 03/23/23 03/23/23 03/23/23 06:59 14:59 22:59 Other: Weight 65.771 kg Results CBC & Chem 7: 03/23/23 19:32 03/23/23 19:32 Labs: Abnormal Lab Results - Last 24 Hours (Table) 03/23/23 03/23/23 Range/Units 19:32 19:32 WBC 15.3 H (3.8-10.6) k/uL Neutrophils # 11.6 H (1.3-7.7) k/uL Sodium 136 L (137-145) mmol/L Carbon Dioxide 20 L (22-30) mmol/L Creatinine 0.45 L (0.52-1.04) mg/dL Total Protein 8.4 H (6.3-8.2) g/dL Assessment and Plan Assessment: 42 year old female with diastolic CHF , pulmonary hypertension , drug abuse with Heroin , coming in due to shortness of breath , does not provide any further context, admits to snorting heroin 3 days ago, I discussed the case with ED doc and I accepted the admission for shortness of breath with EKG reflecting ischemic changes to rule out ACS with anticipate length of stay < 2 midnights shortness of breath EKG with ischemic changes ST depression in infero lateral leads , rule out ACS aspirin 81 mg po daily resume eliquis , possible history of afib or aflutter trops negative 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 vital signs cardiology consult supplemental oxygen as needed hypertensive urgency , uncontrolled hypertension resume amlodipine patient started on clonidine patch in the ED , to help with Blood pressure and opiates withdrawal symptoms monitor vital signs substance abuse heroin abuse , snorting counseled to quit drug of abuse check urine drug screen benzo prn for anxiety morphine PRN for pain diastolic CHF CXR no acute pathology check echocardiogram euovolemic at this time daily weight cardiology consult pulmonary hypertension pulmonary consult patient given 2 L boluses in the ED, discontinue IVF hydration , encourage PO intake dvt ppx eliquis for h/o arrhythmia GI PPX protonix 40 mg daily full code blood work showing WBC 15 , afebrile , no identifiable source of infection , CXR no acute pathology , viral respiratory panel negative for RSV, COVID , influenza Na 136 K 3.7 BUN 9 cr 0.45 Hgb 14.5 unremarkable
--- NOTE | 2023-03-24 05:58 | P.CNPUL ---
History of Present Illness Consult date: 03/24/23 Requesting physician: Braydon Garza Reason for consult: dyspnea, pulmonary hypertension Chief complaint: Shortness of breath History of present illness: I am seeing this patient in consultation today 03/24/2023 in the emergency room after she presented with a chief complaint of shortness of breath. Patient is a 42-year-old white female with past medical history significant for severe pulmo nary hypertension, right-sided heart failure, hypertension, polysubstance abuse, and is a previous tobacco smoker. Her primary care provider is BUSINESS SUPPORT ASSISTANT Cara Dutton at the [facility]. Patient states that she has followed-up at the [facility] in the past for management of her pulmonary hypertension, however, has not been back in 2 years. States that she was diagnosed with pulmonary hypertension with a heart catheterization. She is currently on sildenafil and a calcium channel rm, and states she's been compliant with his medications. She is also on Eliquis, she is unsure why. Denies history of COPD or asthma.. Patient came to the emergency room yesterday afternoon co mplaining mostly of shortness of breath that started that day. She feels that she is withdrawing from Heroin. She states that she snorts heroin daily, but has recently stopped within the last 3 days. Denies injections. She is anxious. Denies any nausea, vomiting, diarrhea. No rhinorrhea. She denies any sick contacts. Denies fevers, chills. Denies chest pain, lower extremity swelling, lightheadedness or passing out. She endorses an occasional cough with minimal sputum production. No sore throat, rhinorrhea, or nasal congestion. Patient is currently lying in bed, on room air, in no acute distress. Spo2 98%. Chest x-ray is unremarkable, without evidence of acute cardiopulmonary disease. No cardiomegaly. There is prominent pulmonary artery shadowing. Appears to be a loop recorder. Most recent echocardiogram is over two years old, but had findings consistent with moderate to severe PAH and RV dysfunction. CBC on arrival: WBC count 15.3, hemoglobin 14.5, hematocrit 43.5, platelets 226. BMP on arrival: Sodium 136, potassium 3.7, chloride 102, serum bicarbonate 20, BUN 9, creatinine 0.45, glucose 98. Troponins negative 3. NT proBNP 2730. ECG shows normal sinus rhythm with right axis deviation and RBBB. Negative for influenza, RSV, COVID-19. Vital signs are stable. Review of Systems REVIEW OF SYSTEMS: CONSTITUTIONAL: Denies any recent significant weight loss or weight gain. EYES: Denies change in vision. EARS, NOSE, MOUTH, THROAT: Denies headaches, denies sore throat. CARDIOVASCULAR: Denies chest pain, palpitations or syncopal episodes. RESPIRATORY: See HPI GASTROINTESTINAL: Denies change in appetite, abdominal pain, nausea and vomiting, or diarrhea GENITOURINARY: Denies hematuria, denies infections. MUSKULOSKELETAL: Denies pain, denies swelling. INTEGUMENTARY: Denies rash, denies eczema. NEUROLOGICAL: Denies recent memory loss, no recent seizure activity. PSYCHIATRIC:, Denies depression. Admits anxiety HEMATOLOGIC/LYMPHATIC: Denies anemia, denies enlarged lymph node Past Medical History Past Medical History: Heart Failure Additional Past Medical History / Comment(s): small airway disease. History of Any Multi-Drug Resistant Organisms: None Reported Past Surgical History: No Surgical Hx Reported Additional Past Surgical History / Comment(s): 5 vaginal deliveries Past Anesthesia/Blood Transfusion Reactions: No Reported Reaction Past Psychological History: No Psychological Hx Reported Smoking Status: Former smoker Past Alcohol Use History: None Reported Past Drug Use History: None Reported - Past Family History Mother Family Medical History: Cancer Additional Family Medical History / Comment(s): Breast CA. family Family Medical History: No Reported History Medications and Allergies Home Medications Medication Instructions Recorded Confirmed Type Sildenafil [Revatio] 20 mg PO TID 12/27/20 03/23/23 History Apixaban [Eliquis] 5 mg PO BID 03/23/23 03/23/23 History Omeprazole 20 mg PO BID 03/23/23 03/23/23 History Sertraline [Zoloft] 75 mg PO DAILY 03/23/23 03/23/23 History amLODIPine [Norvasc] 5 mg PO DAILY 03/23/23 03/23/23 History Allergies Allergy/AdvReac Type Severity Reaction Status Date / Time No Known Allergies Allergy Verified 03/23/23 20:28 Physical Exam Vitals: Vital Signs Temp Pulse Resp BP Pulse Ox 03/24/23 04:00 108 H 23 135/87 96 03/24/23 03:00 86 17 117/82 95 03/24/23 02:00 86 26 H 130/82 95 03/24/23 01:10 18 03/24/23 01:00 81 22 132/84 94 L 03/24/23 00:00 80 26 H 132/87 96 03/23/23 23:36 89 22 116/86 97 03/23/23 23:35 90 16 116/86 98 03/23/23 22:03 112 H 20 112/83 97 03/23/23 21:01 109 H 16 125/102 98 03/23/23 20:25 129 H 18 146/110 96 03/23/23 15:30 98.0 F 104 H 20 169/99 100 Intake and Output 03/23/23 03/23/23 03/24/23 14:59 22:59 06:59 Other: Weight 65.771 kg GENERAL EXAM: Alert, 42-year-old white female, comfortable in no apparent distress. HEAD: Normocephalic and atraumatic EYES: Normal reaction of pupils, equal size. NOSE: Clear with pink turbinates. THROAT: No erythema or exudates. NECK: No masses, no JVD. CHEST: No chest wall deformity. LUNGS: Equal air entry with no crackles, wheeze, rhonchi or dullness. On room air. No conversational dyspnea or accessory muscle use.. CVS: S1 and S2 normal with no audible murmur, regular rhythm. No extra heart sounds ABDOMEN: No hepatosplenomegaly, active bowel sounds, no guarding or rigidity. SPINE: No scoliosis or deformity SKIN: No rashes CENTRAL NERVOUS SYSTEM: No focal deficits, tone is normal in all 4 extremities. EXTREMITIES: There is no peripheral edema, clubbing, or cyanosis. Peripheral pulses are intact. Results - Laboratory Findings CBC and BMP: 03/23/23 19:32 03/23/23 19:32 PT/INR, D-dimer PT 11.9 sec (10.0-12.5) 03/23/23 19:32 INR 1.1 (<1.2) 03/23/23 19:32 Abnormal lab findings: Abnormal Labs 03/23/23 03/23/23 19:32 19:32 WBC 15.3 H Neutrophils # 11.6 H Sodium 136 L Carbon Dioxide 20 L Creatinine 0.45 L Total Protein 8.4 H - Diagnostic Findings Chest x-ray: image reviewed Assessment and Plan Assessment: Possible opiate withdrawal, patient states that she snorts heroin daily, but has not used in the last 3 days. She is trying to quit. History of severe pulmonary hypertension, with chronic cor pulmonale. Acute on chronic dyspnea, most likely secondary to above Leukocytosis, no obvious infectious etiology Hypertension History of tobacco dependence, quit of reportedly over one year ago Plan: Patient's medications, labs, imaging reviewed. No evidence of acute cardiopulmonary disease on chest x-ray. On room air. Follow up 2 D echocardiogram pending No significant evidence of fluid overload state. Home medications restarted Urine drug screen pending. Negative for influenza, RSV, COVID we will continue to follow I have personally seen and examined the patient, performed the documentation and the assessment and plan as written. Number of minutes spent on the visit:20 Time with Patient: Greater than 30
[2023-03-24] MEDS: PANTOPRAZOLE 40 MG TABLET PO SCH (06:38)
[2023-03-24] MEDS ORDERED: LOPERAMIDE 2 MG CAP PO PRN (08:24)
[2023-03-24] MEDS ORDERED: IBUPROFEN 400 MG TAB PO PRN (08:25)
--- NOTE | 2023-03-24 08:53 | P.CRDCN ---
History of Present Illness Consult date: 03/24/23 Consult reason: congestive heart failure History of present illness: History of present illness: This is a 42-year-old female with past medical history of pulmonary hypertension, hypertension, polysubstance abuse with daily heroin use, tobacco u se and dependence. Patient follows at [facility] for pulmonary hypertension. We have been asked to evaluate the patient for heart failure. Patient presented to the emergency center due to shortness of breath. He had she is trying to stop using heroin. Patient previously was seen by Dr. Davey in 2020 And appears to be [facility]. Patient complains of shortness of breath with minimal exertion as well as feeling tired and fatigued and no energy. EKG sinus rhythm right bundle branch block Chest x-ray: No acute process WBC 15.3, hemoglobin 14.5. INR 1.1. Sodium 136, potassium 3.7, BUN 9 creatinine 0.45. Troponin negative 3. Influenza A, influenza B, RSV, Covid 19 not detected.3. ProBNP 2730. Home cardiac medications: Amlodipine 5 g daily, eliquis 5 g twice daily, Revatio 20 mg 3 times daily Echocardiogram performed 12/28/2020 revealed EF of 50-55%, elevated right ventricular end-diastolic pressure. RV systolic dysfunction. Moderate tricuspid regurgitation, moderate pulmonary hypertension. RVSP 43.08 mmHg. Review Of Systems: At the time of my exam: CONSTITUTIONAL: Denies fever or chills. CARDIOVASCULAR: Denies chest pain, reports shortness of breath, no orthopnea, PND or palpitations. RESPIRATORY: Denies cough. GASTROINTESTINAL: Denies abdominal pain, diarrhea, constipation, nausea or vomiting. MUSCULOSKELETAL: Denies myalgias. NEUROLOGIC: Denies numbness, tingling or weakness. ENDOCRINE: Denies fatigue, weight change, polydipsia or polyurina. GENITOURINARY: Denies burning, hematuria or urgency with micturation. HEMATOLOGIC: Denies history of anemia or bleeding. Physical examination: Gen: This is Ordered a 2 year old female resting and appears in no acute distress. VS: reviewed HEENT: Head is atraumatic, normocephalic. Pupils equal, round. Sclerae is anicteric. NECK: Supple. No JVD. LUNGS: Clear to auscultation. No wheezes or rhonchi. No intercostal retractions. HEART: Regular rate and rhythm. No murmur. ABDOMEN: Soft No tenderness. EXTREMITIES: No pedal edema. No calf tenderness. NEUROLOGICAL: Patient is awake, alert and oriented x3. AssessmentShortness of breath secondary to pulmonary hypertension Pulmonary hypertension patient followed at [facility] No evidence of acute heart failure, no fluid overload Heroin use Hypertension Tobacco use and dependence Plan Continue patient's home cardiac medications Obtain 2-D echocardiogram and Doppler study to assess cardiac structure and function Further recommendations to follow based upon clinical course Thank you kindly for this consultation. Nurse practitioner note has been reviewed, I agree with documented findings and plan of care. Patient was seen and examined. Past Medical History Past Medical History: Heart Failure Additional Past Medical History / Comment(s): small airway disease. History of Any Multi-Drug Resistant Organisms: None Reported Past Surgical History: No Surgical Hx Reported Additional Past Surgical History / Comment(s): 5 vaginal deliveries Past Anesthesia/Blood Transfusion Reactions: No Reported Reaction Past Psychological History: No Psychological Hx Reported Smoking Status: Former smoker Past Alcohol Use History: None Reported Past Drug Use History: None Reported - Past Family History Mother Family Medical History: Cancer Additional Family Medical History / Comment(s): Breast CA. family Family Medical History: No Reported History Medications and Allergies Home Medications Medication Instructions Recorded Confirmed Type Sildenafil [Revatio] 20 mg PO TID 12/27/20 03/23/23 History Apixaban [Eliquis] 5 mg PO BID 03/23/23 03/23/23 History Omeprazole 20 mg PO BID 03/23/23 03/23/23 History Sertraline [Zoloft] 75 mg PO DAILY 03/23/23 03/23/23 History amLODIPine [Norvasc] 5 mg PO DAILY 03/23/23 03/23/23 History Allergies Allergy/AdvReac Type Severity Reaction Status Date / Time No Known Allergies Allergy Verified 03/23/23 20:28 Physical Exam Vitals: Vital Signs Temp Pulse Resp BP Pulse Ox 03/24/23 06:00 70 17 121/95 97 03/24/23 05:00 82 18 135/97 94 L 03/24/23 04:00 108 H 23 135/87 96 03/24/23 03:00 86 17 117/82 95 03/24/23 02:00 86 26 H 130/82 95 03/24/23:10 18 03/24/23 01:00 81 22 132/84 94 L 03/24/23 00:00 80 26 H 132/87 96 03/23/23 23:36 89 22 116/86 97 03/23/23 23:35 90 16 116/86 98 03/23/23 22:03 112 H 20 112/83 97 03/23/23 21:01 109 H 16 125/102 98 03/23/23 20:25 129 H 18 146/110 96 03/23/23 15:30 98.0 F 104 H 20 169/99 100 Intake and Output 03/23/23 03/24/23 03/24/23 22:59 06:59 14:59 Other: Weight 65.771 kg Results 03/23/23 19:32 03/23/23 19:32 Cardiac Enzymes 03/23/23 03/23/23 03/23/23 Range/Units 19:32 19:32 23:46 AST 23 (14-36) U/L Troponin I <0.012 <0.012 (0.000-0.034) ng/mL 03/24/23 Range/Units 03:55 AST (14-36) U/L Troponin I <0.012 (0.000-0.034) ng/mL Coagulation 03/23/23 Range/Units 19:32 PT 11.9 (10.0-12.5) sec APTT 26.7 (22.0-30.0) sec CBC 03/23/23 Range/Units 19:32 WBC 15.3 H (3.8-10.6) k/uL RBC 5.22 (3.80-5.40) m/uL Hgb 14.5 (11.4-16.0) gm/dL Hct 43.5 (34.0-46.0) % Plt Count 226 (150-450) k/uL Comprehensive Metabolic Panel 03/23/23 Range/Units 19:32 Sodium 136 L (137-145) mmol/L Potassium 3.7 (3.5-5.1) mmol/L Chloride 102 (98-107) mmol/L Carbon Dioxide 20 L (22-30) mmol/L BUN 9 (7-17) mg/dL Creatinine 0.45 L (0.52-1.04) mg/dL Glucose 98 (74-99) mg/dL Calcium 10.1 (8.4-10.2) mg/dL AST 23 (14-36) U/L ALT 16 (4-34) U/L Alkaline Phosphatase 116 (38-126) U/L Total Protein 8.4 H (6.3-8.2) g/dL Albumin 4.6 (3.5-5.0) g/dL Current Medications Generic Name Dose Route Start Last Admin Trade Name Freq PRN Reason Stop Dose Admin Amlodipine Besylate 5 mg 03/24/23 09:00 Amlodipine 5 Mg Tab PO DAILY ON LICENSE OF [facility] Apixaban 5 mg 03/24/23 09:00 Apixaban 5 Mg Tab PO BID ON LICENSE OF [facility] Protocol Aspirin 81 mg 03/24/23 09:00 Aspirin 81 Mg PO DAILY ON LICENSE OF [facility] Clonidine HCl 1 patch 03/23/23 20:00 03/23/23 20:50 Clonidine 0.3 Mg/24hr Patch TRANSDERM 1 patch Q7D MICHELLE Administration Lorazepam 1 mg 03/23/23 19:59 Lorazepam 2 Mg/Ml Inj IV Q4HR PRN Anxiety Morphine Sulfate 2 mg 03/23/23 19:31 Morphine Sulfate 2 Mg/Ml Syringe IVP Q6HR PRN Pain/Discomfort Morphine Sulfate 4 mg 03/23/23 19:58 Morphine Sulfate 4 Mg/Ml Syringe IV Q4HR PRN Severe Pain (Scale 7 to 10) Naloxone HCl 0.2 mg 03/23/23 19:58 Naloxone 0.4 Mg/Ml 1 Ml Vial IV Q2M PRN Opioid Reversal Ondansetron HCl 4 mg 03/23/23 19:31 Ondansetron 4 Mg/2 Ml Vial IVP Q6HR PRN Nausea And Vomiting Pantoprazole Sodium 40 mg 03/24/23 07:30 03/24/23 06:38 Pantoprazole 40 Mg Tablet PO 40 mg [id number] ON LICENSE OF [facility] Administration Sertraline HCl 75 mg 03/24/23 09:00 Sertraline 25 Mg Tab PO DAILY ON LICENSE OF [facility] Sildenafil Citrate 20 mg 03/24/23 09:00 Sildenafil 20 Mg Tab PO TID ON LICENSE OF [facility] Intake and Output 03/23/23 03/24/23 03/24/23 22:59 06:59 14:59 Other: Weight 65.771 kg 03/23/23 19:32 03/23/23 19:32
[2023-03-24] MEDS ORDERED: cloNIDine 0.1 MG/24HR PATCH TRANSDERM SCH (09:00)
[2023-03-24] MEDS: amLODIPine 5 MG TAB PO SCH (09:05)
[2023-03-24] MEDS: ASPIRIN 81 MG PO SCH (09:05)
[2023-03-24] MEDS: APIXABAN 5 MG TAB PO SCH ×2 (09:05→20:15)
[2023-03-24] MEDS: SERTRALINE 25 MG TAB PO SCH (09:05)
[2023-03-24] MEDS: SILDENAFIL 20 MG TAB PO SCH ×3 (09:06→22:49)
[2023-03-24 09:10] LABS: Chol/HDL Ratio 1.82 Ratio; LDL Cholesterol,Calculated 31.1 mg/dL (0.0-131.0); Magnesium 1.7 mg/dL (1.5-2.4)
[2023-03-24 09:11] LABS: ALT 11 U/L (8-44); AST 13 U/L (13-35); Albumin 3.6 g/dL (3.8-4.9); Alkaline Phosphatase 87 U/L (41-126); Basophils # (A) 0.06 X 10*3/uL (0.00-0.10); Basophils % (A) 0.8 %; Blood Urea Nitrogen 8.2 mg/dL (9.0-27.0); Carbon Dioxide 20.2 mmol/L (21.6-31.8); Chloride 108 mmol/L (96-109); Eosinophils # (A) 0.06 X 10*3/uL (0.04-0.35); Eosinophils % (A) 0.8 %; Globulin 2.4 g/dL (1.6-3.3); Glucose 107 mg/dL (70-110); HCT 36.9 % (37.2-46.3); HGB 12.1 g/dL (12.0-15.0); Lymphocytes # (A) 2.71 X 10*3/uL (0.90-5.00); Lymphocytes % (A) 33.9 %; MCH 27.3 pg (27.0-32.0); MCHC 32.8 g/dL (32.0-37.0); MCV 83.1 FL (80.0-97.0); Mean Platelet Volume 12.3 FL (9.5-12.2); Monocytes # (A) 0.65 X 10*3/uL (0.20-1.00); Monocytes % (A) 8.1 %; NRBC Per 100 WBC 0 X 10*3/uL (0.00-0.01); Neutrophils % (A) 56.1 %; Phosphorus 3.9 mg/dL (2.4-5.1); Platelet Count 201 X 10*3/uL (140-440); Potassium 3.4 mmol/L (3.5-5.5); RBC 4.44 X 10*6/uL (4.10-5.20); Sodium 139 mmol/L (135-145); Total Bilirubin 0.9 mg/dL (0.3-1.2)
[2023-03-24 09:19] LABS: Urine Alcohol Negative (Negative); Urine Barbiturate Negative (Negative); Urine Cocaine Negative (Negative); Urine Methadone Negative (Negative); Urine Opiates Negative (Negative); Urine Phencyclidine Negative (Negative)
--- NOTE | 2023-03-24 17:09 | CA ---
Transthoracic Echo Report Name: Selena Lawton Age: 42 Gender: F : 1980 Exam Date: 03/24/2023 15:03 Exam Location: [facility] Ht (in): 63 Wt (lb): 145 Ordering Physician: Villa Martines DO Attending/Referring Phys: [id number], Bobbi [employer] Jorge Johnson Procedure CPT: Indications: chf Cardiac Hx: Technical Quality: Fair Contrast 1: Total Dose (mL): Contrast 2: Total Dose (mL): MEASUREMENTS (Male / Female) Normal Values 2D ECHO LV Diastolic Diameter PLAX 3.7 cm 4.2 - 5.9 / 3.9 - 5.3 cm LV Systolic Diameter PLAX 2.9 cm IVS Diastolic Thickness 1.1 cm 0.6 - 1.0 / 0.6 - 0.9 cm LVPW Diastolic Thickness 1.0 cm 0.6 - 1.0 / 0.6 - 0.9 cm LV Relative Wall Thickness 0.6 RV Internal Dim ED PLAX 4.3 cm LVOT Diameter 1.8 cm Aortic Root Diameter 2.6 cm LA Systolic Diameter LX 2.3 cm 3.0 - 4.0 / 2.7 - 3.8 cm LV Diastolic Volume MOD BP 39.5 cm??? 67 - 155 / 56 - 104 cm??? LV Systolic Volume MOD BP 12.4 cm??? - 58 / 19 - 49 cm??? LV Ejection Fraction MOD BP 68.6 % >= 55 % LV Cardiac Index MOD BP 1226.2 cm???/min???m??? LV Diastolic Volume MOD 4C 43.4 cm??? LV Systolic Volume MOD 4C 14.1 cm??? LV Ejection Fraction MOD 4C 67.4 % LV Cardiac Index MOD 4C 1323.6 cm???/min???m??? LV Diastolic Length 4C 6.9 cm LV Systolic Length 4C 5.9 cm LV Diastolic Volume MOD 2C 33.8 cm??? LV Systolic Volume MOD 2C 10.3 cm??? LV Ejection Fraction MOD 2C 69.6 % LV Cardiac Index MOD 2C 1063.8 cm???/min???m??? LV Diastolic Length 2C 6.5 cm LV Systolic Length 2C 5.6 cm LA Volume 29.5 cm??? 18 - 58 / 22 - 52 cm??? LA Volume Index 17.1 cm???/m??? 16 - 28 cm???/m??? DOPPLER AV Peak Velocity 123.7 cm/s AV Peak Gradient 6.1 mmHg LVOT Peak Velocity 92.6 cm/s LVOT Peak Gradient 3.4 mmHg LVOT Velocity Time Integral 18.2 cm LVOT Stroke Volume 45.9 cm??? LVOT Stroke Volume Index 27.2 ml/m??? LVOT Cardiac Index 2077.9 cm???/min???m??? AV Area Cont Eq pk 1.9 cm??? MV Peak Velocity 101.1 cm/s MV Peak Gradient 4.1 mmHg MV Mean Velocity 63.3 cm/s MV Mean Gradient 1.9 mmHg MV Velocity Time Integral 31.8 cm Mitral E Point Velocity 79.9 cm/s Mitral A Point Velocity 87.5 cm/s Mitral E to A Ratio 0.9 MV Deceleration Time 256.4 ms TR Peak Velocity 358.8 cm/s TR Peak Gradient 51.5 mmHg Right Ventricular Systolic Press 61.5 mmHg FINDINGS Left Ventricle Normal LV size and wall thickness. Left ventricular ejection fraction is estimated at 55-60 %. Right Ventricle Severe right ventricular dilatation. RVSP= 61mmHg. Right Atrium Severe right atrial dilatation. RA area= 22.5cm2 Left Atrium Normal left atrial size. Mitral Valve Structurally normal mitral valve. Trace MR. Aortic Valve Trileaflet aortic valve. Mild AV sclerosis. No aortic stenosis. No aortic regurgitation. Tricuspid Valve Structurally normal tricuspid valve. Moderate to Severe TR. Pulmonic Valve Pulmonic valve not well visualized. No pulmonic regurgitation. Pericardium Normal pericardium. Aorta Normal size aortic root. CONCLUSIONS Normal LV systolic function Severely dilated right ventricle Severe pulmonary hypertension Moderate to severe tricuspid regurgitation Previewed by: Dr. Niraj Hernandez MD (Electronically Signed) Final Date: 24 March 2023 17:09
[2023-03-24] MEDS ORDERED: POTASSIUM CHLORIDE ER 20 MEQ TAB.ER PO STA (17:12)
--- NOTE | 2023-03-24 17:14 | P.PN ---
Subjective Progress Note Date: 03/24/23 (delayed charting seen at 0815) Patient is a 42-year-old female with known severe pulmonary hypertension, cor pulmonale, prior CVA, and heroin abuse who presented to the hospital with complaints of shortness of breath. On arrival to the emergency department she was found to be tachycardic with a pulse of 104, blood pressure is elevated at 169/99. Labs were remarkable for leukocytosis of 15.3, sodium 136. Influenza A/B/RSV/COVID-19 testing was negative. Chest x-ray showed no acute cardiopulmonary process. Your EKG showed some concerns for ischemic changes in the inferior lateral leads. She was admitted for hypertensive urgency. She was resumed on amlodipine and started on a Catapres patch. Cardiology and pulmonary were consulted. Patient seen and examined at bedside. She is having pain all over and some shortness of breath. She is feeling slightly better breathing valdez than yesterday but does feel like she is in opiate withdrawal. She has been using heroin for the last year and wants to be clean. Vital signs reviewed General: Nontoxic, no distress, appears older than stated age, disheveled Cardiovascular: S1S2 reg, no murmur, positive posterior tibial pulse bilateral, Lungs: CTA bilateral, no rhonchi, no rales, no accessory muscle use Abdominal: Soft, nontender to palpation, no guarding, no appreciable organomegaly Ext: No gross muscle atrophy, no edema b/l lower extremities, no contractures Neuro: CN II-XI grossly intact, no focal neuro deficits Psych: Alert, oriented, appropriate affect, withdrawn Assessment/Plan: Hypertensive urgency Chronic cor pulmonale with pulmonary hypertension History of stroke Hypertension -Pulmonary note reviewed: Continue current care -Cardiology note reviewed: Continue patient's home cardiac medications -Procardia 20 mg 3 times daily, Norvasc 5 mg daily, Catapres patch decreased to 0.1 mg every 7 days -Follow blood pressures -Await echocardiogram Hypokalemia -Potassium 20 mill equivalents p.o. x 1 Opiate dependency currently in withdrawal -Added Motrin 600 mg 3 times daily for pain, Zofran 4 mg every 6 hours for nausea, and Imodium for diarrhea Leukocytosis, resolved Imaging: None new Data Review: Labs reviewed include CBC, CMP, cholesterol profile which are remarkable for potassium 3.4. Urine drug screen came back positive for amphetamines DVT prophylaxis: Eliquis Anticipated discharge date: 24 to [address]: Home This dictation was prepared using [employer] voice recognition software. Though every attempt is made to correct errors during dictation some may still exist. Objective - Vital Signs Vital signs: Vital Signs Temp 98.0 F 03/23/23 15:30 Pulse 69 03/24/23 12:35 Resp 18 03/24/23 12:35 BP 127/86 03/24/23 12:35 Pulse Ox 95 03/24/23 12:35 FiO2 Intake & Output 03/23/23 03/24/23 03/24/23 18:59 06:59 18:59 Weight 65.771 kg - Labs CBC & Chem 7: 03/24/23 03:55 03/24/23 03:55 Labs: Abnormal Lab Results - Last 24 Hours (Table) 03/23/23 03/23/23 03/24/23 Range/Units 19:32 19:32 03:55 WBC 15.3 H (3.8-10.6) k/uL Hct 36.9 L (37.2-46.3) % MPV 12.3 H (9.5-12.2) FL Neutrophils # 11.6 H (1.3-7.7) k/uL Sodium 136 L (137-145) mmol/L Potassium (3.5-5.5) mmol/L Carbon Dioxide 20 L (22-30) mmol/L BUN (9.0-27.0) mg/dL Creatinine 0.45 L (0.52-1.04) mg/dL Total Protein 8.4 H (6.3-8.2) g/dL Albumin (3.8-4.9) g/dL Albumin/Globulin Ratio (1.60-3.17) Ratio Ur Amphetamine Screen (Negative) 03/24/23 03/24/23 Range/Units 03:55 06:40 WBC (3.8-10.6) k/uL Hct (37.2-46.3) % MPV (9.5-12.2) FL Neutrophils # (1.3-7.7) k/uL Sodium (137-145) mmol/L Potassium 3.4 L (3.5-5.5) mmol/L Carbon Dioxide 20.2 L (22-30) mmol/L BUN 8.2 L (9.0-27.0) mg/dL Creatinine 0.5 L (0.52-1.04) mg/dL Total Protein 6.0 L (6.3-8.2) g/dL Albumin 3.6 L (3.8-4.9) g/dL Albumin/Globulin Ratio 1.50 L (1.60-3.17) Ratio Ur Amphetamine Screen Positive A (Negative)
[2023-03-25] MEDS: PANTOPRAZOLE 40 MG TABLET PO SCH (04:36)
[2023-03-25 07:48] VITALS: TEMP 97.6
[2023-03-25] MEDS: amLODIPine 5 MG TAB PO SCH (08:59)
[2023-03-25] MEDS: SERTRALINE 25 MG TAB PO SCH (08:59)
[2023-03-25] MEDS: ASPIRIN 81 MG PO SCH (08:59)
[2023-03-25] MEDS: APIXABAN 5 MG TAB PO SCH (08:59)
[2023-03-25] MEDS: SILDENAFIL 20 MG TAB PO SCH (09:00)
--- NOTE | 2023-03-25 10:50 | P.PN ---
Subjective Progress Note Date: 03/25/23 I am seeing this patient in consultation today 03/24/2023 in the emergency room after she presented with a chief complaint of shortness of breath. Patient is a 42-year-old white female with past medical history significant for severe pulmonary hypertension, right-sided heart failure, hypertension, polysubstance abuse, and is a previous tobacco smoker. Her primary care provider is [employer]OR Cara Dutton at the [facility]. Patient states that she has followed-up at the [facility] in the past for management of her pulmonary hypertension, however, has not been back in 2 years. States that she was diagnosed with pulmonary hypertension with a heart catheterization. She is currently on sildenafil and a calcium channel rm, and states she's been compliant with his medications. She is also on Eliquis, she is unsure why. Denies history of COPD or asthma.. Patient came to the emergency room yesterday afternoon complaining mostly of shortness of breath that started that day. She feels that she is withdrawing from Heroin. She states that she snorts heroin daily, but has recently stopped within the last 3 days. Denies injections. She is anxious. Denies any nausea, vomiting, diarrhea. No rhinorrhea. She denies any sick contacts. Denies fevers, chills. Denies chest pain, lower extremity swelling, lightheadedness or passing out. She endorses an occasional cough with minimal sputum production. No sore throat, rhinorrhea, or nasal congestion. Patient is currently lying in bed, on room air, in no acute distress. Spo2 98%. Chest x-ray is unremarkable, without evidence of acute cardiopulmonary disease. No cardiomegaly. There is prominent pulmonary artery shadowing. Appears to be a loop recorder. Most recent echocardiogram is over two years old, but had findings consistent with moderate to severe PAH and RV dysfunction. CBC on arrival: WBC count 15.3, hemoglobin 14.5, hematocrit 43.5, platelets 226. BMP on arrival: Sodium 136, potassium 3.7, chloride 102, serum bicarbonate 20, BUN 9, creatinine 0.45, glucose 98. Troponins negative 3. NT proBNP 2730. ECG shows normal sinus rhythm with right axis deviation and RBBB. Negative for influenza, RSV, COVID-19. Vital signs are stable. The patient is seen today 03/25/2023 in follow-up on the regular medical floor. She is awake and alert in no acute distress. She is maintaining good O2 saturations in the 90s on room air. She has normal saline at 75 ML's per hour. Echocardiogram reveals normal left ventricular systolic function. There is severely dilated right ventricle. Severe pulmonary hypertension with an RVSP of 61 mmHg. Moderate to severe tricuspid regurgitation. White count 8.0. Hemo globin 12.1. Platelets 201. Sodium 139. Potassium 3.4. Bicarb 20. BUN 8. Creatinine 0.5. Urine drug screen was positive for amphetamines. She is anticoagulated with Eliquis. Remains on Revatio. Objective - Vital Signs Vital signs: Vital Signs Temp 97.6 F 03/25/23 07:32 Pulse 98 03/25/23 07:32 Resp 16 03/25/23 07:32 BP 132/88 03/25/23 07:32 Pulse Ox 97 03/25/23 07:32 FiO2 Intake & Output 03/24/23 03/25/23 03/25/23 18:59 06:59 18:59 Weight 65.771 kg Other: # Voids 2 - Exam GENERAL EXAM: Alert, 42-year-old female, on room air, comfortable in no apparent distress. HEAD: Normocephalic. EYES: Normal reaction of pupils, equal size. NOSE: Clear with pink turbinates. THROAT: No erythema or exudates. NECK: No masses, no JVD. CHEST: No chest wall deformity. LUNGS: Equal air entry with no crackles, wheeze, rhonchi or dullness. CVS: S1 and S2 normal with no audible murmur, regular rhythm. ABDOMEN: No hepatosplenomegaly, normal bowel sounds, no guarding or rigidity. SPINE: No scoliosis or deformity SKIN: No rashes CENTRAL NERVOUS SYSTEM: No focal deficits, tone is normal in all 4 extremities. EXTREMITIES: There is no peripheral edema. No clubbing, no cyanosis. Peripheral pulses are intact. - Labs CBC & Chem 7: 03/24/23 03:55 03/24/23 03:55 Assessment and Plan Assessment: Possible opiate withdrawal, patient states that she snorts heroin daily, but has not used in the last 3 days. Urine drug screen positive for amphetamines History of severe pulmonary hypertension, with chronic cor pulmonale. Echocardiogram reveals severe right ventricular dilatation and severe pulmonary hypertension with RVSP of 66 mmHg Acute on chronic dyspnea, most likely secondary to above, stable and on room air Leukocytosis, no obvious infectious etiology, improved Hypertension History of tobacco dependence, quit of reportedly over one year ago Land: The patient was seen and evaluated Chest x-ray labs echocardiogram and medications reviewed Stable and on room air Remains on Eliquis for anticoagulation Remains on Revatio Cardiology consulted Cleared for discharge from the pulmonary standpoint Recommend following up again at the [facility] pulmonary hypertension clinic Educated regarding the importance of complete drug cessation This patient was seen independently by the pulmonary nurse practitioner addressing pulmonary issues I have personally seen and examined the patient, performed the documentation and the assessment and plan as written. Number of minutes spent on the visit: 24.
--- NOTE | 2023-03-25 11:16 | P.PN ---
Subjective Progress Note Date: 03/25/23 Consult reason: congestive heart failure History of present illness: History of present illness: This is a 42-year-old female with past medical history of pulmonary hypertension, hypertension, polysubstance abuse with daily heroin use, tobacco use and dependence. Patient follows at [facility] for pulmonary hypertension. We have been asked to evaluate the patient for heart failure. Patient presented to the emergency center due to shortness of breath. He had she is trying to stop using heroin. Patient previously was seen by Dr. Davey in 2020 And appears to be following with [facility]. Patient complains of shortness of breath with minimal exertion as well as feeling tired and fatigued and no energy. EKG sinus rhythm right bundle branch block Chest x-ray: No acute process WBC 15.3, hemoglobin 14.5. INR 1.1. Sodium 136, potassium 3.7, BUN 9 creatinine 0.45. Troponin negative 3. Influenza A, influenza B, RSV, Covid 19 not detected.3. ProBNP 2730. Home cardiac medications: Amlodipine 5 g daily, eliquis 5 g twice daily, Revatio 20 mg 3 times daily Echocardiogram performed 12/28/2020 revealed EF of 50-55%, elevated right ventricular end-diastolic pressure. RV systolic dysfunction. Moderate tricuspid regurgitation, moderate pulmonary hypertension. RVSP 43.08 mmHg. 03/25 Echocardiogram reveals normal LV systolic function. Severely dilated right ventricle. Severe pulmonary hypertension. Moderate to severe tricuspid regurgitation. Blood pressure 132/88, heart rate in the 80s and 90s. Pulse ox 97% on room air, afebrile. Physical examination: Gen: This is Ordered a 2 year old female resting and appears in no acute distress. VS: reviewed HEENT: Head is atraumatic, normocephalic. Pupils equal, round. Sclerae is anicteric. NECK: Supple. No JVD. LUNGS: Clear to auscultation. No wheezes or rhonchi. No intercostal retractions. HEART: Regular rate and rhythm. No murmur. ABDOMEN: Soft No tenderness. EXTREMITIES: No pedal edema. No calf tenderness. NEUROLOGICAL: Patient is awake, alert and oriented x3. AssessmentShortness of breath secondary to pulmonary hypertension Pulmonary hypertension patient followed at [facility] No evidence of acute heart failure, no fluid overload Heroin use Hypertension Tobacco use and dependence Plan Continue patient's home cardiac medications Patient is cleared for discharge from cardiology and will follow up with [facility]. Nurse practitioner note has been reviewed, I agree with documented findings and plan of care. Patient was seen and examined. Objective - Vital Signs Vital signs: Vital Signs Temp 97.6 F 03/25/23 07:32 Pulse 98 03/25/23 07:32 Resp 16 03/25/23 07:32 BP 132/88 03/25/23 07:32 Pulse Ox 97 03/25/23 07:32 FiO2 Intake & Output 03/24/23 03/25/23 03/25/23 18:59 06:59 18:59 Weight 65.771 kg Other: # Voids 2 - Labs CBC & Chem 7: 03/24/23 03:55 03/24/23 03:55 Labs: Abnormal Lab Results - Last 24 Hours (Table) 03/24/23 03/24/23 03/24/23 Range/Units 03:55 03:55 06:40 Hct 36.9 L (37.2-46.3) % MPV 12.3 H (9.5-12.2) FL Potassium 3.4 L (3.5-5.5) mmol/L Carbon Dioxide 20.2 L (21.6-31.8) mmol/L BUN 8.2 L (9.0-27.0) mg/dL Creatinine 0.5 L (0.6-1.5) mg/dL Total Protein 6.0 L (6.2-8.2) g/dL Albumin 3.6 L (3.8-4.9) g/dL Albumin/Globulin Ratio 1.50 L (1.60-3.17) Ratio Ur Amphetamine Screen Positive A (Negative)
--- NOTE | 2023-03-25 14:01 | P.DS ---
Providers Date of admission: 03/23/23 19:58 Expected date of discharge: 03/25/23 Attending physician: Kacy Pride MD Consults: 03/23/23 19:58 Consult Physician Routine Consulting Provider: Yoana Gill Consult Reason/Comments: chf Do you want consulting provider notified?: Yes 03/24/23 03:18 Consult Physician Routine Consulting Provider: Gregorio Castrejon Consult Reason/Comments: pulmonary hypertension, SOB Do you want consulting provider notified?: Yes Primary care physician: [facility] Hospital Course: Discharge Diagnosis: Hypertensive urgency, resolved Chronic cor pulmonale with pulmonary hypertension History of stroke Hypertension Hypokalemia Opiate dependency currently in withdrawal Leukocytosis, resolved Hospital Course: Patient is a 42-year-old female with known severe pulmonary hypertension, cor pulmonale, prior CVA, and heroin abuse who presented to the hospital with complaints of shortness of breath. On arrival to the emergency department she was found to be tachycardic with a pulse of 104, blood pressure is elevated at 169/99. Labs were remarkable for leukocytosis of 15.3, sodium 136. Influenza A/B/RSV/COVID-19 testing was negative. Chest x-ray showed no acute cardiopulmonary process. Your EKG showed some concerns for ischemic changes in the inferior lateral leads. She was admitted for hypertensive urgency. She was resumed on amlodipine and started on a Catapres patch. Cardiology and pulmonary were consulted. Her blood pressure remained well-controlled and her Catapres patch was decreased. She underwent echocardiogram which showed ejection fraction 55 to 60% with severe right ventricular dilatation, severe right atrial dilatation, and severe pulmonary hypertension with RVSP of 61 mmHg. She continued to do well and did not require any oxygen. She was cleared by pulmonary and cardiology. She was determined stable for discharge. She was seen by social work and given resources for her addiction. Follow-up: Additional medications include aspirin 81 mg daily, Catapres 0.1 mg per 24-hour patch. She will follow-up with her primary care provider at [facility] as well as Dr. Hernandez in 1 week. Pulmonary has referred her back to the pulmonary hypertension clinic at [facility] and the patient was provided the phone number. He was encouraged to continue to abstain from any drugs and alcohol. Patient seen and examined at bedside. She continues to withdraw from heroin. She complains of allover body aches. She denies nausea, vomiting, or diarrhea. Vital signs reviewed and stable. General: Nontoxic, no distress, appears at stated age Cardiovascular: S1S2 reg, no murmur, positive posterior tibial pulse bilateral, Lungs: CTA bilateral, no rhonchi, no rales, no accessory muscle use Ext: No gross muscle atrophy, no edema b/l lower extremities, no contractures Neuro: CN II-XI grossly intact, no focal neuro deficits Psych: Alert, oriented, withdrawn A total of 32 minutes of time were spent preparing this complex discharge summary. Patient was discharged on 03/25/23. This dictation was prepared using [employer] voice recognition software. Though every attempt is made to correct errors during dictation some may still exist. Patient Condition at Discharge: Serious Plan - Discharge Summary New Discharge Prescriptions: New Aspirin 81 mg PO DAILY tab cloNIDine 0.1 MG/24HR PATCH [Catapres-TTS] 1 patch TRANSDERM Q7D #4 patch Continue amLODIPine [Norvasc] 5 mg PO DAILY Sertraline [Zoloft] 75 mg PO DAILY Omeprazole 20 mg PO BID Sildenafil [Revatio] 20 mg PO TID Apixaban [Eliquis] 5 mg PO BID Discharge Medication List Sildenafil [Revatio] 20 mg PO TID 12/27/20 [History] Apixaban [Eliquis] 5 mg PO BID 03/23/23 [History] Omeprazole 20 mg PO BID 03/23/23 [History] Sertraline [Zoloft] 75 mg PO DAILY 03/23/23 [History] amLODIPine [Norvasc] 5 mg PO DAILY 03/23/23 [History] Aspirin 81 mg PO DAILY tab 03/25/23 [Rx] cloNIDine 0.1 MG/24HR PATCH [Catapres-TTS] 1 patch TRANSDERM Q7D #4 patch 03/25/23 [Rx] Follow up Appointment(s)/Referral(s): [facility] [Primary Care Provider] - 1-2 days Niraj Hernandez MD [STAFF PHYSICIAN] - 1 Week (Office will call with appointment time and date.) Activity/Diet/Wound Care/Special Instructions: Activity: As tolerated Diet: Heart Healthy, 2 gram sodium Special Instructions: Please follow with. Pulmonary Hypertension Clinic at [facility] [address], [employer] [place] [phone] Abstain from drugs and alcohol Discharge/Stand Alone Forms: Who Do I Call?, Community Resources, Outpatient Counseling, In Substance Abuse Facilities Discharge Disposition: HOME SELF-CARE
[2023-03-25 14:42] VITALS: BP 116/73; PULSE 93; RESP 18
== END 2023-03-25 15:01 | disposition home or self-care (01) | DRG 897 ==
LOC: EC 15:29 → 5NMEDONC 19:58 → 6NMEDSUR 03-24 20:22
PROVIDERS: ADMIT Internal Medicine; ATTEND Internal Medicine
DX: F12.23 Cannabis dependence with withdrawal (principal); I50.32 Chronic diastolic (congestive) heart failure; I16.0 Hypertensive urgency; I11.0 Hypertensive heart disease with heart failure; I27.81 Cor pulmonale (chronic); I50.82 Biventricular heart failure; R06.00 Dyspnea, unspecified; I07.1 Rheumatic tricuspid insufficiency; R00.0 Tachycardia, unspecified; D72.829 Elevated white blood cell count, unspecified; E87.6 Hypokalemia; I45.10 Unspecified right bundle-branch block; I48.91 Unspecified atrial fibrillation; Z79.899 Other long term (current) drug therapy; I27.20 Pulmonary hypertension, unspecified; Z80.3 Family history of malignant neoplasm of breast; Z86.73 Personal history of transient ischemic attack (TIA), and cerebral infarction without residual deficits; Z87.891 Personal history of nicotine dependence; Z79.01 Long term (current) use of anticoagulants; Z79.82 Long term (current) use of aspirin; Z11.52 Encounter for screening for COVID-19; Z71.51 Drug abuse counseling and surveillance of drug abuser
CPT/HCPCS: 36415; 71046; 80053; 80061; 80306; 83605; 83735; 83880; 84100; 84484; 85025; 85610; 85730; 87636; 93005; 93306; 96361; 96374; 96375; 99285